=== PATIENT | female | born 1935 | race Caucasian/White ===

== ENCOUNTER 2017-10-14 11:12 | Emergency (ER) | payer MEDICARE ==
[2016-04-10 09:41] VITALS: Ht 177.8 cm; Wt 68.1 kg
[~2017-10-14] VITALS: Ht 177.8 cm; Wt 68.1 kg
[~2017-10-14 11:12] MED LIST: ACE325 PO; ACET-3079 PO; ASPI-715 PO; CAR3.125 PO; CARV25TA78 PO; CEP500 PO; DAR75 PO; DIG125 PO; DIGO125T90 PO; DILT30TA35 PO; DILT360C49 PO; DIPH-740 PO; DONE5TAB29 PO; GLIP2.5T PO; HYDR-4309 PO; IBUP600T22 PO; LISI2.5T60 PO; LOR5/325 PO; METF-420 PO; METXR500 PO; OXYB5TAB86 PO; OXYC-865 PO; POTA20TA94 PO; PRED20TA6 PO; RANI-445 PO; SIMV-42 PO; SITA100T PO; SITA25TA PO; TRAM-420 PO; TRAZ-156 PO; VITA100T4 PO; WAR5 PO; WARF-18 PO
--- NOTE | 2017-10-14 11:14 | ER Report ---
History and Physical Time Seen By MD: 11:13 Hx. of Stated Complaint: Pain hypersensitivity right lower extremity HPI/ROS Patient is on Coumadin for atrial fib states she was making her bed last night and had sudden onset of pain hypersensitivity right lower extremity and states she can have material next to her leg pain is dull and constant and and is not better with treatment since she is trying at home she's tried cremes heat and elevation and rest Remainder of the 14 system rev: Yes Allergies: Coded Allergies: Tetanus Vaccines and Toxoid (Verified Allergy, Intermediate, SWELLING, ) Home Meds Active Scripts Triamcinolone Acetonide 0.1% Oint 15 Gm Tube (TRIAMCINOLONE ACETONIDE 0.1% 15 GM TUBE) 15 Gm Oint...g., 15 GM TP BIDLS for 7 Days, TUBE Prov:TAI CHAN 10/14/17 Warfarin Sodium (WARFARIN SODIUM) 5 Mg Tablet, 7.5 MG PO QDAY, #45 TAB Prov:TREMAYNE MORGAN MD 04/16/16 Reported Medications Oxybutynin Chloride (OXYBUTYNIN CHLORIDE) 5 Mg Tablet, 5 MG PO BID, TAB 10/14/17 Metformin Hcl (METFORMIN HCL) 1,000 Mg Tablet, 1 TAB PO BID, TAB 07/13/17 Carvedilol (CARVEDILOL) 3.125 Mg Tab, 3.125 MG PO BID, TAB 07/13/17 Past Medical/Surgical History History of tonsillectomy, history of dementia, history of atrial fibrillation, history of rheumatic fever as a child, history of high cholesterol, history of hypertension, history of sleep apnea, hysterectomy, hammertoe surgery, diabetes , cervical cancer Hx Smoking: No Smoking Status: Former Smoker Hx Substance Use Disorder: No Hx Alcohol Use: No Family History of: Other Constitutional Vital Sign - Last 24 Hours 10/14/17 10/14/17 11:21 13:13 Temp 97.8 Pulse 64 59 Resp 18 B/P (MAP) 146/65 140/69 (92) Pulse Ox 97 97 O2 Delivery Room Air Room Air Intake and Output 10/14/17 10/14/17 10/15/17 15:00 23:00 07:00 Intake Total 500 ml Balance 500 ml Physical Exam Patient's 82-year-old female alert and oriented no acute distress HEENT has normocephalic/atraumatic tympanic membranes are non-reddened throat is non- reddened neck is supple no JVD heart rate is irregular lungs decreased bilateral bases abdomen is soft bowel sounds 4 quadrants moves all extremities no peripheral edema does have full pulses to all extremities Medical Decision Making Data Points Result Diagram: 10/14/17 1140 10/14/17 1140 Laboratory Hematology Test 10/14/17 11:40 10/14/17 12:37 Red Blood Count 3.99 M/uL (4.17-5.56) Mean Corpuscular Volume 89.4 fL (80.0-96.0) Mean Corpuscular Hemoglobin 30.7 pg (26.0-33.0) Mean Corpuscular Hemoglobin Concent 34.3 g/dL (32.0-36.0) Red Cell Distribution Width 14.0 % (11.5-14.5) Mean Platelet Volume 6.9 fL (7.2-11.1) Neutrophils (%) (Auto) 53.6 % (39.4-72.5) Lymphocytes (%) (Auto) 38.3 % (17.6-49.6) Monocytes (%) (Auto) 6.8 % (4.1-12.4) Eosinophils (%) (Auto) 0.9 % (0.4-6.7) Basophils (%) (Auto) 0.4 % (0.3-1.4) Nucleated RBC Relative Count (auto) 0.0 /100WBC Neutrophils # (Auto) 2.1 K/uL (2.0-7.4) Lymphocytes # (Auto) 1.5 K/uL (1.3-3.6) Monocytes # (Auto) 0.3 K/uL (0.3-1.0) Eosinophils # (Auto) 0.0 K/uL (0.0-0.5) Basophils # (Auto) 0.0 K/uL (0.0-0.1) Nucleated RBC Absolute Count (auto) 0.00 K/uL Sodium Level 134 mmol/L (137-145) Potassium Level 5.0 mmol/L (3.5-5.0) Chloride Level 101 mmol/L (98-107) Carbon Dioxide Level 24 mmol/L (22-31) Blood Urea Nitrogen 17 mg/dl (7-18) Creatinine 1.50 mg/dl (0.52-1.04) Glomerular Filtration Rate Calc 33.3 Random Glucose 102 mg/dl (75-110) Calcium Level 10.0 mg/dl (8.4-10.2) Magnesium Level 1.6 mg/dl (1.7-2.2) Total Bilirubin 0.3 mg/dl (0.2-1.3) Aspartate Amino Transf (AST/SGOT) 16 U/L (0-35) Alanine Aminotransferase (ALT/SGPT) 24 U/L (0-56) Alkaline Phosphatase 53 U/L (0-126) C-Reactive Protein < 0.5 mg/dl (<1.0) Total Protein 6.5 gm/dl (6.3-8.2) Albumin 3.8 g/dl (3.5-5.0) Prothrombin Time 33.5 seconds (12.0-14.4) Prothromb Time International Ratio 3.14 Chemistry Test 10/14/17 11:40 10/14/17 12:37 White Blood Count 3.9 k/uL (4.5-11.0) Red Blood Count 3.99 M/uL (4.17-5.56) Hemoglobin 12.3 g/dL (12.0-16.0) Hematocrit 35.7 % (34.0-47.0) Mean Corpuscular Volume 89.4 fL (80.0-96.0) Mean Corpuscular Hemoglobin 30.7 pg (26.0-33.0) Mean Corpuscular Hemoglobin Concent 34.3 g/dL (32.0-36.0) Red Cell Distribution Width 14.0 % (11.5-14.5) Platelet Count 215 K/uL (150-450) Mean Platelet Volume 6.9 fL (7.2-11.1) Neutrophils (%) (Auto) 53.6 % (39.4-72.5) Lymphocytes (%) (Auto) 38.3 % (17.6-49.6) Monocytes (%) (Auto) 6.8 % (4.1-12.4) Eosinophils (%) (Auto) 0.9 % (0.4-6.7) Basophils (%) (Auto) 0.4 % (0.3-1.4) Nucleated RBC Relative Count (auto) 0.0 /100WBC Neutrophils # (Auto) 2.1 K/uL (2.0-7.4) Lymphocytes # (Auto) 1.5 K/uL (1.3-3.6) Monocytes # (Auto) 0.3 K/uL (0.3-1.0) Eosinophils # (Auto) 0.0 K/uL (0.0-0.5) Basophils # (Auto) 0.0 K/uL (0.0-0.1) Nucleated RBC Absolute Count (auto) 0.00 K/uL Glomerular Filtration Rate Calc 33.3 Calcium Level 10.0 mg/dl (8.4-10.2) Magnesium Level 1.6 mg/dl (1.7-2.2) Total Bilirubin 0.3 mg/dl (0.2-1.3) Aspartate Amino Transf (AST/SGOT) 16 U/L (0-35) Alanine Aminotransferase (ALT/SGPT) 24 U/L (0-56) Alkaline Phosphatase 53 U/L (0-126) C-Reactive Protein < 0.5 mg/dl (<1.0) Total Protein 6.5 gm/dl (6.3-8.2) Albumin 3.8 g/dl (3.5-5.0) Prothrombin Time 33.5 seconds (12.0-14.4) Prothromb Time International Ratio 3.14 Coagulation Test 10/14/17 12:37 Prothrombin Time 33.5 seconds Prothromb Time International Ratio 3.14 EKG/Imaging EKG Interpretation EKG at 1131 sinus bradycardia ventricular rate 57 QTCs 406 ED Course/Re-evaluation Clinical Indication for ER IV: Hydration ED Course Serum creatinine is 1.5 looking at history the history highest was 1.3 we'll give her 500 mL of normal saline for this serum magnesium is 1.6 we'll give her a by mouth 400 mg mag oxide for this ultrasound right lower extremity was read as negative for hypersensitivity noted there is no rash to right lower leg will apply triamcinolone twice a day for a week to follow up with a primary care physician for repeat lab work Re-evaluation Feeling much better after treatment and is willing to go home follow with primary care physician will return for any problems or concerns Decision to Disposition Date: Oct 14, 2017 Decision to Disposition Time: 13:13 Depart Departure Latest Vital Signs Vital Signs Date Time Temp Pulse Resp B/P (MAP) Pulse Ox O2 Delivery O2 Flow Rate FiO2 10/14/17 13:13 59 140/69 (92) 97 Room Air 10/14/17 11:21 97.8 18 Impression: Primary Impression: Elevated serum creatinine Additional Impression: Hypersensitivity Condition: Improved Disposition: HOME OR SELF-CARE Referrals: MIL CARRASCO C[facility]RILL OPERATOR (PCP) 2 Days New Scripts Triamcinolone Acetonide 0.1% Oint 15 Gm Tube (TRIAMCINOLONE ACETONIDE 0.1% 15 GM TUBE) 15 Gm Oint...g. 15 GM TP BIDLS for 7 Days, TUBE Prov: TAI CHAN 10/14/17 Patient Instructions: Leg Pain (ED) Additional Instructions: Her INR report today is 3.1 for follow-up to primary care physician for dosing of your Coumadin take medication as directed follow up closely with her primary care physician Problem Qualifiers TAI CHAN Oct 14, 2017 11:14
[2017-10-14] MEDS ORDERED: OXYB5TAB86 PO (11:25)
--- NOTE | 2017-10-14 11:37 | EKG ---
FACILITY: [facility] PATIENT NAME: JUAN VIEIRA : [id number] MR: [id number] V: [id number] EXAM DATE: ORDERING PHYSICIAN: TAI CHAN TECHNOLOGIST: JUAN ANTONIO Bowman Reason : NAUSEA Blood Pressure : / mmHG Vent. Rate : 057 BPM Atrial Rate : 057 BPM P-R Int : 148 ms QRS Dur : 072 ms QT Int : 418 ms P-R-T Axes : 060 041 060 degrees QTc Int : 406 ms Sinus bradycardia Otherwise normal ECG When compared with ECG of 10-APR-2016 00:47, Sinus rhythm has replaced Atrial flutter Nonspecific T wave abnormality no longer evident in Inferior leads Nonspecific T wave abnormality no longer evident in Anterior leads QT has shortened Confirmed by PRAVEENA WALTERS ([id number]) on 10/14/2017 2:19:17 PM Referred By: SHRADDHA Confirmed By:PRAVEENA WALTERS
[2017-10-14 11:54] LABS: PLATELET COUNT, AUTOMATED 215 K/uL (150-450)
[2017-10-14] MEDS ORDERED: NS(*) 0.9% 500 ML BAG 500 ML IV ONE (12:05)
[2017-10-14] MEDS ORDERED: MAGNESIUM OXIDE 400 MG TAB PO ONE (12:10)
[2017-10-14] MEDS ORDERED: TRIA15OI20 TP (12:22)
[2017-10-14] MEDS ORDERED: TRIAMCINOLONE ACE 0.1% CR 15GM TP ONE (12:25)
--- NOTE | 2017-10-14 12:36 | RADIOLOGY IMAGING REPORT ---
FACILITY: [facility] PATIENT NAME: Yessy Sosa : 1935 MR: [id number] V: [id number] EXAM DATE: ORDERING PHYSICIAN: TAI CHAN TECHNOLOGIST: Location: [facility] [place] Patient: Yessy Sosa : 1935 Visit/Account:[id number] Date of Sevice: 10/14/2017 Right lower extremity venous Doppler duplex ultrasound scan. HISTORY: Right lower leg pain, on Coumadin. COMPARISON: None. A color flow Doppler duplex ultrasound examination with spectral analysis was performed on the lower extremity. The common femoral vein, superficial femoral vein, and popliteal vein are normal. These ve ssels compress and augment normally. The upper portions of the trifurcation veins are unremarkable. P ortions of the deep veins of the calf are obscured. No intraluminal filling defects are identified to suggest acute thrombus in the deep venous system. Note that Doppler ultrasound is somewhat insensiti ve below the knee. A venous reflux study was not performed at this time. IMPRESSION: Negative for acute deep vein thrombosis. Report Dictated By: Virgil Chatman MD at 10/14/2017 12:33 PM Report E-Signed By: Virgil Chatman MD at 10/14/2017 12:34 PM WSN:GEOFFREY
[2017-10-14 12:56] LABS: INR 3.14
[2017-10-14 13:13] VITALS: BP 140/69
== END 2017-10-14 13:10 | disposition home or self-care (01) ==
LOC: ER 11:25
DX: R79.89 Other specified abnormal findings of blood chemistry (principal); R20.8 Other disturbances of skin sensation
CPT/HCPCS: 36415; 83735; 85025; 85610; 86140; 93005; 93971; 96360; 99284; A9270; J7040; 82040; 82247; 82310; 82374; 82435; 82565; 82947; 84075; 84132; 84155; 84295; 84450; 84460; 84520

== ENCOUNTER → 2018-01-21 | Outpatient (CLI) | payer MEDICARE ==
[2016-04-10 09:41] VITALS: BMI 24.1
[~2018-01-21] MED LIST changes: +ACET500T68 PO; +APIX5TAB PO; +CALC-640 PO; +CHOL10005 PO; +CYA1000 PO; +DEN60I SUBQ; +DENOSUMAB 60 MG/1 ML SYR SUBQ ONE; +DICL100G39; +DONE5TAB74 PO; +IBUP-1671 PO; -METF-420 PO; +METF-421 PO; +OXYB10TA16 PO; +TRIA15OI20 TP; -WARF-18 PO; +WARF5TAB23 PO
[2018-01-21 13:48] VITALS: BP 106/64
== END ==
LOC: SPU 07:31
PROVIDERS: ATTEND Nurse Practitioner Family
DX: M81.0 Age-related osteoporosis without current pathological fracture (principal)
CPT/HCPCS: 96372; J0897

== ENCOUNTER 2018-07-08 00:47 | Inpatient (IN) | payer MEDICARE ==
[~2018-07-08] VITALS: Ht 177.8 cm; Wt 75.2 kg
[2018-07-08] VITALS (10 sets, daily range): BP systolic 88–118; BP diastolic 59–90; Ht 177.8 cm; Wt 75.2 kg
[~2018-07-08 00:47] MED LIST changes: -DENOSUMAB 60 MG/1 ML SYR SUBQ ONE; -HYDR-4309 PO; +HYDR-653 PO; -METF-421 PO; +METF-452 PO; -TRAZ-156 PO; +TRAZ50TA34 PO
--- NOTE | 2018-07-08 01:02 | ER Report ---
History and Physical Time Seen By MD: 00:57 Hx. of Stated Complaint: patient states she has been having weakness, and dizziness for the last 5days. patient having shortness of breath and rapid heart rate this evening. HPI/ROS CHIEF COMPLAINT: racing heart rate and some shortness of breath. HISTORY OF PRESENT ILLNESS: This is an 82 year old female. She came to the ER tonight because of ongoing rapid heart rate tonight and a feeling of some mild shortness of breath. This has been going on since this morning. She has paroxysmal atrial fibrillation and is on Eliquis. She also takes Carvedilol 3.125mg three times a day and has not missed doses of her medication. She has no chest pain. No nausea or vomiting. She has had several urinalysis that have revealed urinary tract infections over the last few weeks and has been on several courses of antibiotics, without the ability to get rid of the infection. She has no fevers or chills. She has been a little dizzy today as well. Mild weakness, but is generalized and non-focal. No complaints of pain. Allergies: Coded Allergies: Tetanus Vaccines and Toxoid (Verified Allergy, Intermediate, SWELLING, 10/14/17) Home Meds Reported Medications Loperamide HCl (Imodium A-D) 2 Mg Capsule 07/08/18 Triamcinolone Acetonide 0.1% (TRIAMCINOLONE ACETONIDE 0.1%) 60 Ml Lotion, 60 ML TP BID, BOT 07/08/18 Donepezil Hcl (DONEPEZIL HCL) 5 Mg Tablet, 5 MG PO QHS, TAB 07/08/18 Nitrofurantoin Monohyd/M-Cryst (NITROFURANTOIN MONO-MCR 100 MG) 100 Mg Capsule, 100 MG PO BID for 10 Days, CAPSULE 07/08/18 Diclofenac Sodium 1% Gel (VOLTAREN 1% GEL) 100 Gm Gel..gram. 01/21/18 Cholecalciferol (Vitamin D3) (VITAMIN D3) 1,000 Unit Tablet, 5000 UNIT PO DAILY, TAB 01/21/18 Acetaminophen (TYLENOL EXTRA STRENGTH) 500 Mg Tablet, 500 MG PO PRN PRN for PAIN, TAB 01/21/18 Oxybutynin Chloride (OXYBUTYNIN CHLORIDE ER) 10 Mg Tab.er.24, 10 MG PO QDAY, TAB.SR 01/21/18 Ibuprofen (MOTRIN IB) 200 Mg Tablet, 600 MG PO Q6-8H PRN for PAIN 01/21/18 Sitagliptin Phosphate (JANUVIA) 100 Mg Tablet, 100 MG PO QDAY 01/21/18 Apixaban (ELIQUIS) 5 Mg Tablet, 5 MG PO BID 01/21/18 Carvedilol (CARVEDILOL) 3.125 Mg Tab, 3.125 MG PO BID, TAB 01/21/18 Calcium Citrate/Vitamin D3 (CALCITRATE + VIT D CAPLET) 1 Each Tablet, 1 EACH PO DAILY 01/21/18 Cyanocobalamin (Vitamin B-12) (VITAMIN B-12) 1,000 Mcg Tablet, 1000 MCG PO DAILY 01/21/18 Discontinued Reported Medications Denosumab (PROLIA) 60 Mg/1 Ml Injs, 60 MG SUBQ 01/21/18 Donepezil Hcl (ARICEPT) 5 Mg Tablet, 5 MG PO HS, TAB 01/21/18 Metformin Hcl (METFORMIN HCL) 1,000 Mg Tablet, 1 TAB PO BID, TAB 07/13/17 Past Medical/Surgical History Atrial fibrillation, hypertension, hypercholesterolemia, aly-vqfnfsf-htpyrcxls diabetes, sleep apnea, GERD, stress incontinence, history of rheumatic fever as a child but no known problems, dementia, history of cervical cancer, surgeries include hysterectomy, appendectomy, several foot surgeries, tonsillectomy, bilateral cataract surgeries Reviewed Nurses Notes: Yes Hx Smoking: No Smoking Status: Former Smoker Hx Substance Use Disorder: No Hx Alcohol Use: No Constitutional Vital Sign - Last 24 Hours 07/08/18 07/08/18 07/08/18 07/08/18 00:52 01:00 01:02 01:17 Temp 98.8 Pulse 125 127 134 Resp 20 9 9 B/P (MAP) 120/73 103/76 (85) Pulse Ox 97 98 96 O2 Delivery Room Air 07/08/18 07/08/18 07/08/18 07/08/18 01:30 01:32 01:47 01:52 Pulse 132 134 134 Resp 9 12 24 B/P (MAP) 100/67 (78) Pulse Ox 96 07/08/18 07/08/18 07/08/18 07/08/18 02:14 02:22 02:27 02:30 Pulse 134 134 Resp 21 16 B/P (MAP) 94/63 (73) 93/62 (72) Pulse Ox 98 95 07/08/18 07/08/18 07/08/18 07/08/18 02:42 02:57 03:11 03:12 Pulse 134 133 134 Resp 13 22 20 B/P (MAP) 115/74 (88) Pulse Ox 96 96 98 07/08/18 07/08/18 07/08/18 07/08/18 03:27 03:30 03:42 03:57 Pulse 138 104 99 Resp 16 12 20 B/P (MAP) 110/68 (82) Pulse Ox 96 95 95 07/08/18 07/08/18 07/08/18 07/08/18 04:00 04:05 04:20 04:30 Pulse 97 91 Resp 20 10 B/P (MAP) 94/58 (70) 79/47 (58) Pulse Ox 91 92 07/08/18 07/08/18 07/08/18 07/08/18 04:35 04:50 04:52 04:53 Pulse 88 93 Resp 15 14 B/P (MAP) 88/57 (67) 90/58 (69) 73/53 (60) Pulse Ox 97 96 07/08/18 07/08/18 07/08/18 07/08/18 04:54 05:00 05:05 05:10 Pulse 86 75 Resp 27 13 B/P (MAP) 69/40 (50) 87/63 (71) Pulse Ox 95 94 07/08/18 07/08/18 07/08/18 07/08/18 05:25 05:31 05:36 05:51 Pulse 87 94 90 Resp 7 19 18 B/P (MAP) 83/66 (72) Pulse Ox 96 93 93 07/08/18 07/08/18 07/08/18 07/08/18 06:00 06:06 06:11 06:26 Pulse 77 106 130 Resp 16 25 13 B/P (MAP) 96/48 (64) Pulse Ox 96 96 96 07/08/18 07/08/18 07/08/18 07/08/18 06:30 06:41 06:46 07:00 Pulse 136 133 Resp 10 19 B/P (MAP) 110/66 (81) 86/56 (66) Pulse Ox 97 96 07/08/18 07/08/18 07/08/18 07/08/18 07:01 07:16 07:21 07:30 Pulse 134 134 133 Resp 17 13 15 B/P (MAP) 93/62 (72) Pulse Ox 96 96 95 07/08/18 07/08/18 07/08/18 07/08/18 07:35 07:40 07:45 07:50 Pulse 131 133 131 132 Resp 22 14 18 11 Pulse Ox 95 96 95 97 07/08/18 07/08/18 07/08/18 07/08/18 07:55 08:00 08:05 08:10 Pulse 129 135 116 115 Resp 17 14 22 12 B/P (MAP) 91/54 (66) Pulse Ox 96 97 98 97 07/08/18 07/08/18 07/08/18 07/08/18 08:15 08:20 08:25 08:30 Pulse 99 104 111 99 Resp 16 14 9 14 B/P (MAP) 90/62 (71) Pulse Ox 96 98 97 96 07/08/18 08:35 Pulse 96 Resp 16 Pulse Ox 96 Physical Exam General Appearance: The patient is alert. No acute distress. Non-toxic in appearance. Eyes: Pupils are equal, round. No pallor, injection or icterus. ENT: Mucous membranes are moist. Normal oral mucosa. Posterior oropharynx is normal. Neck: Supple and non tender. Respiratory: Lungs are clear to auscultation. Cardiovascular: Tachycardia with a regular rhythm. No murmurs, gallops or rubs. Normal capillary refill. Trace edema, bilateral lower extremities. Gastrointestinal: Abdomen is soft and non tender. Nondistended. Normal active bowel sounds. Neurological: Alert and oriented x3. No focal neurologic deficits Skin: Warm and dry. Musculoskeletal: Extremities are nontender. Full range of motion. DIFFERENTIAL DIAGNOSIS: After history and physical exam, differential diagnosis was considered for patient with tachycardia with dizziness associated with this and mild shortness of breath. We'll need to look for various causes such as atrial fibrillation although the pulse is regular, infectious disease especially given her recent history of urinary tract infections, other arrhythmias, acute coronary syndromes, PE. Medical Decision Making Data Points Result Diagram: 07/08/18 0100 07/08/18 0100 Laboratory Hematology Test 07/08/18 01:00 07/08/18 03:12 07/08/18 04:42 Red Blood Count 4.74 M/uL (4.17-5.56) Mean Corpuscular Volume 88.2 fL (80.0-96.0) Mean Corpuscular Hemoglobin 29.9 pg (26.0-33.0) Mean Corpuscular Hemoglobin Concent 33.9 g/dL (32.0-36.0) Red Cell Distribution Width 14.3 % (11.5-14.5) Mean Platelet Volume 7.2 fL (7.2-11.1) Neutrophils (%) (Auto) 60.4 % (39.4-72.5) Lymphocytes (%) (Auto) 32.0 % (17.6-49.6) Monocytes (%) (Auto) 6.1 % (4.1-12.4) Eosinophils (%) (Auto) 0.9 % (0.4-6.7) Basophils (%) (Auto) 0.6 % (0.3-1.4) Nucleated RBC Relative Count (auto) 0.1 /100WBC Neutrophils # (Auto) 3.2 K/uL (2.0-7.4) Lymphocytes # (Auto) 1.7 K/uL (1.3-3.6) Monocytes # (Auto) 0.3 K/uL (0.3-1.0) Eosinophils # (Auto) 0.0 K/uL (0.0-0.5) Basophils # (Auto) 0.0 K/uL (0.0-0.1) Nucleated RBC Absolute Count (auto) 0.00 K/uL D-Dimer Quantitative (PE/DVT) < 0.27 ug/ml (0-0.50) Sodium Level 134 mmol/L (137-145) Potassium Level 4.2 mmol/L (3.5-5.0) Chloride Level 98 mmol/L (98-107) Carbon Dioxide Level 24 mmol/L (22-31) Blood Urea Nitrogen 20 mg/dl (7-18) Creatinine 1.30 mg/dl (0.52-1.04) Glomerular Filtration Rate Calc 39.3 Random Glucose 119 mg/dl (75-110) Calcium Level 10.2 mg/dl (8.4-10.2) Total Bilirubin 0.5 mg/dl (0.2-1.3) Aspartate Amino Transf (AST/SGOT) 16 U/L (0-35) Alanine Aminotransferase (ALT/SGPT) 16 U/L (0-56) Alkaline Phosphatase 50 U/L (0-126) Total Protein 7.3 g/dl (6.3-8.2) Albumin 4.2 g/dl (3.5-5.0) Urine WBC Clumps Many /HPF Urine Transitional Epithelial Cells Many /LPF (NONE-FEW) Urine Hyaline Casts Few /LPF (NONE-FEW) Troponin I 0.038 ng/ml Chemistry Test 07/08/18 01:00 07/08/18 03:12 07/08/18 04:42 White Blood Count 5.2 k/uL (4.5-11.0) Red Blood Count 4.74 M/uL (4.17-5.56) Hemoglobin 14.2 g/dL (12.0-16.0) Hematocrit 41.8 % (34.0-47.0) Mean Corpuscular Volume 88.2 fL (80.0-96.0) Mean Corpuscular Hemoglobin 29.9 pg (26.0-33.0) Mean Corpuscular Hemoglobin Concent 33.9 g/dL (32.0-36.0) Red Cell Distribution Width 14.3 % (11.5-14.5) Platelet Count 284 K/uL (150-450) Mean Platelet Volume 7.2 fL (7.2-11.1) Neutrophils (%) (Auto) 60.4 % (39.4-72.5) Lymphocytes (%) (Auto) 32.0 % (17.6-49.6) Monocytes (%) (Auto) 6.1 % (4.1-12.4) Eosinophils (%) (Auto) 0.9 % (0.4-6.7) Basophils (%) (Auto) 0.6 % (0.3-1.4) Nucleated RBC Relative Count (auto) 0.1 /100WBC Neutrophils # (Auto) 3.2 K/uL (2.0-7.4) Lymphocytes # (Auto) 1.7 K/uL (1.3-3.6) Monocytes # (Auto) 0.3 K/uL (0.3-1.0) Eosinophils # (Auto) 0.0 K/uL (0.0-0.5) Basophils # (Auto) 0.0 K/uL (0.0-0.1) Nucleated RBC Absolute Count (auto) 0.00 K/uL D-Dimer Quantitative (PE/DVT) < 0.27 ug/ml (0-0.50) Glomerular Filtration Rate Calc 39.3 Calcium Level 10.2 mg/dl (8.4-10.2) Total Bilirubin 0.5 mg/dl (0.2-1.3) Aspartate Amino Transf (AST/SGOT) 16 U/L (0-35) Alanine Aminotransferase (ALT/SGPT) 16 U/L (0-56) Alkaline Phosphatase 50 U/L (0-126) Total Protein 7.3 g/dl (6.3-8.2) Albumin 4.2 g/dl (3.5-5.0) Urine WBC Clumps Many /HPF Urine Transitional Epithelial Cells Many /LPF (NONE-FEW) Urine Hyaline Casts Few /LPF (NONE-FEW) Troponin I 0.038 ng/ml Coagulation Test 07/08/18 01:00 D-Dimer Quantitative (PE/DVT) < 0.27 ug/ml Urinalysis Test 07/08/18 03:12 Urine WBC Clumps Many /HPF Urine Transitional Epithelial Cells Many /LPF (NONE-FEW) Urine Hyaline Casts Few /LPF (NONE-FEW) EKG/Imaging EKG Interpretation 12 lead EKG: Initial EKG at 00:54 hours Rhythm: Appears to be a sinus tachycardia, appeared to be able to see P waves in leads V1 and in V3. The rate is 125 Toponas: normal QRS: QRS is regular when measured with calipers. Low-voltage QRS ST segments: No ST segment elevation or depression 12 lead EKG: At 03:48 hours Rhythm: Atrial flutter with variable AV block, rate 112 Toponas: normal QRS: Continued low-voltage ST segments: normal Imaging CHEST PA AND LAT HISTORY: Shortness of breath. Atrial fibrillation. Dizzy COMPARISON: 07/13/2017 and studies dating to 01/24/2012. TECHNIQUE: PA and lateral views of the chest. FINDINGS: Pulmonary: There is a calcified granuloma in the left lower lobe, unchanged. There is mild scarring or atelectasis at the right costophrenic angle. There is no pneumothorax or pleural effusion. Cardiomediastinal: Cardiac and mediastinal silhouettes are within normal limits. There is mild to moderate aortic calcification. Bones/soft tissues: No acute osseous abnormality. There is mild degenerative change of the spine. There is mild rightward curvature of the thoracolumbar spine. The visible abdomen is normal. IMPRESSION: 1. Mild scarring or atelectasis at the right costophrenic angle. Report Dictated By: Lisa Aburto at 07/08/2018 2:26 AM ED Course/Re-evaluation Clinical Indication for ER IV: IV Access ED Course Initial attempts at IV access or successful at obtaining blood, but any flushing or attempt at administering medicines or IV fluids causes the veins to blow. P atient continues to be mildly short of breath, discussed other options. Labs appear to be unremarkable other than mild renal insufficiency with an elevated BUN/creatinine ratio. She has normal electrolytes and liver function, normal blood count. Unremarkable d-dimer and troponin at this point as well. Because of this a mild symptoms we will discussed options. She did not appear ill enough to have a central line placed and I don't have any other options are now so we elected to go ahead and use some oral therapy starting with diltiazem 30 mg by mouth dose. She tolerated this well and had slight reduction in her heart rate without any apparent problem with her blood pressure. She is already on Coreg so after about an hour we gave Coreg 3.125 mg oral dose and watched. She had slowing of her heart rate. On the monitor and repeat EKG she seemed to have variation in her rhythm from an atrial flutter with variable AV block 2 atrial fibrillation, getting down into the 70s to 90s heart rate range. Blood pressure started to go down as well. Blood pressures ranged from the 115 systolic range down to the 80s systolic range. While resting she is asymptomatic, but with change in position she gets dizzy and orthostatic vital signs show orthostatic hypotension. She was finally able to give us a urinalysis as well and shows to have question of contamination versus urinary tract infection as well. Discussed the case with Dr. Potts, and we felt like the main problem we are dealing with is dehydration. We have the IV in place finally and giving slow IV normal saline to be careful with the IV. Has had almost 1 liter in and starting to see improvement in blood pressure and slight decrease in pulse. We are going to continue hydration over the next few hours and see if this improves, but may need to admit for further hydration and monitoring and consideration of other medications. Decision to Disposition Date: Jul 08, 2018 Decision to Disposition Time: 09:00 Turned Over The care of the patient was turned over to Dr. Jett. Alejo Sheehan M.D. I authorize my typed signature that I authenticated this report. Depart Departure Latest Vital Signs Vital Signs Date Time Temp Pulse Resp B/P (MAP) Pulse Ox O2 Delivery O2 Flow Rate FiO2 07/08/18 08:35 96 16 96 07/08/18 08:30 90/62 (71) 07/08/18 00:52 98.8 Room Air Impression: Primary Impression: Atrial fibrillation with RVR Additional Impression: Atrial flutter Condition: Condition Unchanged Disposition: Admitted from ER Referrals: MIL CARRASCO (PCP) Problem Qualifiers Additional Impression: Atrial flutter Atrial flutter type: unspecified Qualified Codes: I48.92 - Unspecified atrial flutter ALEJO SHEEHAN MD Jul 08, 2018 01:02
[2018-07-08] MEDS ORDERED: NS(*) 0.9% 1000 ML BAG 1,000 ML IV ONE ×2 (01:05→05:35)
[2018-07-08] MEDS ORDERED: DILTIAZEM 5 MG/ML 5ML IVPUSH IVP ONE (01:05)
[2018-07-08] MEDS ORDERED: NITR-57 PO (01:07)
[2018-07-08 01:12] LABS: PLATELET COUNT, AUTOMATED 284 K/uL (150-450)
--- NOTE | 2018-07-08 01:58 | EKG ---
FACILITY: [facility] PATIENT NAME: JUAN VIEIRA : [id number] MR: [id number] V: [id number] EXAM DATE: ORDERING PHYSICIAN: VIKI AVILA TECHNOLOGIST: PITO Test Reason : CARDIAC Blood Pressure : / mmHG Vent. Rate : 125 BPM Atrial Rate : 125 BPM P-R Int : 000 ms QRS Dur : 066 ms QT Int : 304 ms P-R-T Axes : 000 018 054 degrees QTc Int : 438 ms Accelerated Junctional rhythm Low voltage QRS Septal infarct , age undetermined Abnormal ECG When compared with ECG of 14-OCT-2017 11:31, Junctional rhythm has replaced Sinus rhythm Vent. rate has increased BY 68 BPM Septal infarct is now present T wave amplitude has decreased in Inferior leads Nonspecific T wave abnormality now evident in Anterior leads Confirmed by JOSHUA GODOY ([id number]) on 07/08/2018 6:20:18 AM Referred By: Confirmed By:JOSHUA GODOY
[2018-07-08] MEDS ORDERED: DILTIAZEM IR 30 MG TAB PO ONE (02:05)
[2018-07-08] MEDS ORDERED: CARVEDILOL 3.125 MG TAB PO ONE (02:15)
--- NOTE | 2018-07-08 02:33 | RADIOLOGY IMAGING REPORT ---
FACILITY: [facility] PATIENT NAME: Yessy Sosa : 1935 MR: [id number] V: [id number] EXAM DATE: ORDERING PHYSICIAN: VIKI AVILA TECHNOLOGIST: Location: [facility] [place] Patient: Yessy Sosa : 1935 Visit/Account:[id number] Date of Sevice: 07/08/2018 CHEST PA AND LAT HISTORY: Shortness of breath. Atrial fibrillation. Dizzy COMPARISON: 07/13/2017 and studies dating to 01/24/2012. TECHNIQUE: PA and lateral views of the chest. FINDINGS: Pulmonary: There is a calcified granuloma in the left lower lobe, unchanged. There is mild scarring o r atelectasis at the right costophrenic angle. There is no pneumothorax or pleural effusion. Cardiomediastinal: Cardiac and mediastinal silhouettes are within normal limits. There is mild to mod erate aortic calcification. Bones/soft tissues: No acute osseous abnormality. There is mild degenerative change of the spine. The re is mild rightward curvature of the thoracolumbar spine. The visible abdomen is normal. IMPRESSION: 1. Mild scarring or atelectasis at the right costophrenic angle. Report Dictated By: Lisa Aburto at 07/08/2018 2:26 AM Report E-Signed By: Lisa Aburto at 07/08/2018 2:28 AM WSN:[id number]
[2018-07-08] MEDS ORDERED: ACETAMINOPHEN 500 MG TAB PO ONE (03:15)
[2018-07-08] MEDS ORDERED: TRIA60LO3 TP (11:14)
[2018-07-08] MEDS ORDERED: DONE5TAB29 PO (11:14)
[2018-07-08] MEDS ORDERED: LOPE2CAP15 (11:14)
[2018-07-08] MEDS ORDERED: DIGOXIN 0.5 MG/2 ML AMP IVP ONE ×3 (11:30→21:40)
[2018-07-08] MEDS ORDERED: APIXABAN 2.5 MG TABLET PO ONE (11:48)
--- NOTE | 2018-07-08 11:59 | History & Physical ---
History of Present Illness History of Present Illness 82yo female with atrial fibrillation who came to the ER for weakness and dizziness for a week. She was in her normal state of health until about a week ago. She started noting intermittent SOB that was not associated with exertion. She also would get dizzy with standing up. Both symptoms have progressively w orsened. Last night, she was so weak that she couldn't prepare a meal. She checked her pulse oximetry and noted that her heart rate was 110-118 bpm, so she came to the ER. She denies cp/orthopnea/PND/chills/fevers/dyspnea. In the ER, she was found to be in atrial fibrillation with RVR. She was given a dose of oral diltiazem IR 30mg and then carvedilol 3.125mg. The patient then developed some low BP's and was symptomatic so was bolused IVF. She is feeling better, but still getting dizzy with even sitting up. History Problems: (1) CKD (chronic kidney disease) stage 3, GFR 30-59 ml/min Status: Chronic (2) Atrial flutter Status: Chronic (3) GERD (gastroesophageal reflux disease) Status: Chronic (4) Stress incontinence Status: Chronic (5) T2DM (type 2 diabetes mellitus) Status: Chronic (6) Chronic systolic (congestive) heart failure Status: Resolved (7) Moderate to severe pulmonary hypertension Status: Chronic Home Meds Reported Medications Nitrofurantoin Monohyd/M-Cryst (NITROFURANTOIN MONO-MCR 100 MG) 100 Mg Capsule, 100 MG PO BID, CAPSULE 07/08/18 Diclofenac Sodium 1% Gel (VOLTAREN 1% GEL) 100 Gm Gel..gram. 01/21/18 Cholecalciferol (Vitamin D3) (VITAMIN D3) 1,000 Unit Tablet, 5000 UNIT PO DAILY, TAB 01/21/18 Acetaminophen (TYLENOL EXTRA STRENGTH) 500 Mg Tablet, 500 MG PO PRN PRN for PAIN, TAB 01/21/18 Oxybutynin Chloride (OXYBUTYNIN CHLORIDE ER) 10 Mg Tab.er.24, 10 MG PO QDAY, TAB.SR 01/21/18 Ibuprofen (MOTRIN IB) 200 Mg Tablet, 600 MG PO Q6-8H PRN for PAIN 01/21/18 Sitagliptin Phosphate (JANUVIA) 100 Mg Tablet, 100 MG PO QDAY 01/21/18 Apixaban (ELIQUIS) 5 Mg Tablet, 5 MG PO BID 01/21/18 Carvedilol (CARVEDILOL) 3.125 Mg Tab, 3.125 MG PO BID, TAB 01/21/18 Calcium Citrate/Vitamin D3 (CALCITRATE + VIT D CAPLET) 1 Each Tablet, 1 EACH PO DAILY 01/21/18 Cyanocobalamin (Vitamin B-12) (VITAMIN B-12) 1,000 Mcg Tablet, 1000 MCG PO DAILY 01/21/18 Discontinued Reported Medications Denosumab (PROLIA) 60 Mg/1 Ml Injs, 60 MG SUBQ 01/21/18 Donepezil Hcl (ARICEPT) 5 Mg Tablet, 5 MG PO HS, TAB 01/21/18 Metformin Hcl (METFORMIN HCL) 1,000 Mg Tablet, 1 TAB PO BID, TAB 07/13/17 Allergies: Coded Allergies: Tetanus Vaccines and Toxoid (Verified Allergy, Intermediate, SWELLING, 10/14/17) Other Social/Family Hx She smoked 1/3 ppd for 10 years and quit 40 years ago. Rare alcohol use. Hx Smoking: No Smoking Status: Former Smoker Hx Alcohol Use: No Hx Substance Use Disorder: No Review of Systems All Systems Reviewed/Normal: Yes, Except as Noted Exam Vital Signs Vital Signs Date Time Temp Pulse Resp B/P (MAP) Pulse Ox O2 Delivery O2 Flow Rate FiO2 07/08/18 10:21 98.6 139 12 118/74 (89) 94 Room Air General Appearance: Alert, Awake, No Acute Distress (Breathing comfortably) Neuro: No Gross deficits ENT: Moist Mucous Membranes, Posterior Pharynx Clear Cardiovascular: No JVD, Other (Irreg, irreg. No m/r/g) Respiratory: Clear to Auscultation GI: Abd Soft and Non-Tender Extremities: No Edema Integumentary: No Jaundice, No Cyanosis Medical Decision Making Data Points Result Diagram: 07/08/18 0100 07/08/18 0100 Item Value Date Time Urine Leukocyte Esterase Large H 07/08/18 0312 Urine RBC 14 /HPF 07/08/18 0312 Urine WBC 330 /HPF 07/08/18 0312 Urine WBC Clumps Many /HPF 07/08/18 0312 Urine Squamous Epithelial Cells Many /LPF H 07/08/18 0312 Urine Transitional Epithelial Cells Many /LPF H 07/08/18 0312 Urine Bacteria Many /HPF H 07/08/18 0312 Neutrophils (%) (Auto) 60.4 % 07/08/18 010 Lymphocytes (%) (Auto) 32.0 % 07/08/18 010 Monocytes (%) (Auto) 6.1 % 07/08/18 010 Eosinophils (%) (Auto) 0.9 % 07/08/18 010 Basophils (%) (Auto) 0.6 % D-Dimer Quantitative (PE/DVT) < 0.27 ug/ml 07/08/18 010 Troponin I 0.038 ng/ml 07/08/18 0442 Troponin I 0.030 ng/ml Total Bilirubin 0.5 mg/dl Aspartate Amino Transf (AST/SGOT) 16 U/L 07/08/18 010 Alanine Aminotransferase (ALT/SGPT) 16 U/L 07/08/18 010 Alkaline Phosphatase 50 U/L 07/08/18 010 Creatinine 1.10 mg/dl H 07/13/17 1420 Creatinine 1.50 mg/dl H 10/14/17 1140 EKG / Imaging EKG Interpretation The first ECG appeared to be a sinus rhythm with 1st degree AV block at a rate of 125bpm. However, subsequent ECG's, that have to be uploaded, look more like an atrial flutter with variable conduction and RVR. Imaging CXR - 1. Mild scarring or atelectasis at the right costophrenic angle. Assessment and Plan Problems: (1) Atrial fibrillation with RVR Status: Acute Assessment & Plan: She presented with 5-7 days of progressive dizziness with standing and weakness. She was found to be in atrial fib/flutter with rates in the 110-130's. Per her report, she is usually in a sinus rhythm. She was given a dose of diltiazem IR 30mg and carvedilol 3.125mg in the ER with complications of symptomatic hypotension and not much improvement in her HR. She is feeling better after a fluid bolus. Her heart rate still ranges from 100's to 130's. BP is better, but gets dizzy with standing. Will load with Digoxin, continue carvedilol, hydrate, check an echo, check a TSH and watch on telemetry. Ashley nue chronic Eliquis, but at age and renal dosing (which she should likely be on as an outpatient). (2) UTI (urinary tract infection) Status: Acute Assessment & Plan: She has many WBC on the UA, but also SCE. She is asymptomatic, afebrile and has a normal WBC. However, she reports many asymptomatic UTI's in the past. Will do a straight cath and likely start Rocephin. (3) Chronic systolic (congestive) heart failure Status: Resolved Assessment & Plan: She had an EF of 48%, with Moderate to severe KENYATTA, moderate AR, severe TR and severe pulmonary hypertension on 04/10/16 echo. However, 05/15/16 echo showed an EF of 53%. A nuclear stress test on 06/04/16 showed no rmal perfusion, and normal LV size and function (an EF of 85%). No symptoms c/w with CHF. Will get an echo, as above. (4) T2DM (type 2 diabetes mellitus) Status: Chronic Assessment & Plan: Continue chronic Januvia, but at renal dosing of 50mg a day (which she should likely be on as an outpatient). Chronic metformin will be held for now. The patient with be on AC and HS glucose with SSI level 2 to cover. (5) Stress incontinence Status: Chronic Assessment & Plan: Continue chronic oxybutynin. (6) Moderate to severe pulmonary hypertension Status: Chronic Assessment & Plan: See above. (7) CKD (chronic kidney disease) stage 3, GFR 30-59 ml/min Status: Chronic Assessment & Plan: Baseline creatinine is 1.1-1.5. Will follow. Copies to: ELISABETH WILLAMS MD; BIANCA CRAWFORD MD; MIL CARRASCO ; Venous Thromboembolism Antithrombotics Is Pt On Any Antithrombotics?: Yes Exam Sepsis Risk: No Definite Risk TREMAYNE MORGAN MD Jul 08, 2018 11:59
[2018-07-08] MEDS: INSULIN HUM LISPRO 100 UN/ML 3 ML VIAL SUBQ PRN ×2 (12:01→20:48)
[2018-07-08] MEDS: APIXABAN 2.5 MG TABLET PO SCH ×2 (12:04→20:47)
[2018-07-08] MEDS: NS(*) 0.9% 1000 ML BAG 1,000 ML IV PRN (13:05)
[2018-07-08] MEDS: cefTRIAXone 1 GM VIAL IVP SCH (14:28)
[2018-07-08] MEDS: CARVEDILOL 3.125 MG TAB PO SCH (20:01)
[2018-07-08] MEDS: OXYBUTYNIN CHL XL 5 MG TABCR PO SCH (20:47)
[2018-07-09] VITALS (12 sets, daily range): BP systolic 91–119; BP diastolic 55–75
[2018-07-09 05:56] LABS: PLATELET COUNT, AUTOMATED 235 K/uL (150-450)
[2018-07-09] MEDS: APIXABAN 2.5 MG TABLET PO SCH ×2 (09:49→20:54)
[2018-07-09] MEDS: CARVEDILOL 3.125 MG TAB PO SCH (09:50)
[2018-07-09] MEDS ORDERED: CARVEDILOL 3.125 MG TAB PO ONE (10:30)
--- NOTE | 2018-07-09 10:58 | Hospitalist Progress Note ---
Subjective Progress Notes Subjective 82F admitted for Aflutter/afib with RVR. ROWAN overnight, continues to be symptomatic with ambulation and heart rate increases. 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 Patient Complains of: Neurological: Weakness, Dizziness; No: Syncope Cardiovascular: Palpitations; No: Chest Pain Respiratory: No: Cough Physical Exam Vital Signs Date Time Temp Pulse Resp B/P (MAP) Pulse Ox O2 Delivery O2 Flow Rate FiO2 07/09/18 10:32 97.7 125 16 100/68 (79) 95 Room Air 07/09/18 05:59 1.5 Intake and Output 07/09/18 07:00 Intake Total 2792 ml Output Total 500 ml Balance 2292 ml Intake Oral 1792 ml IV Total 1000 ml Output Urine Total 500 ml # Voids 7 General Appearance: Alert, Awake, No Acute Distress Neuro: No Gross deficits Eyes: PERRLA ENT: Normal Neck: No Masses Cardiovascular: Other (irregularly irregular, thacycardic) Respiratory: No Respiratory Distress Chest: No Masses GI: Soft and Non-Tender Musculoskeletal: No Weakness/Pain Extremities: Soft and Non Tender, Warm, Pulses, Perfused; No Edema Integumentary: Skin Intact without Lesion / Mass Psych: Alert & Oriented X3 Result Diagram: 07/09/18 0542 07/09/18 0542 Assessment and Plan Problems: (1) Atrial fibrillation with RVR Status: Acute Assessment & Plan: She presented with 5-7 days of progressive dizziness with standing and weakness, found to be in atrial fib/flutter with rates in the 110- 130's. Per her report, she is usually in a sinus rhythm. She was given a dose of diltiazem IR 30mg and carvedilol 3.125mg in the ER with complications of symptomatic hypotension and not much improvement in her HR. She was loaded with digoxin with no significant improvement in BP. Increased carvedilol to 6.25 but BP is limiting. Consider amiodarone. (2) Asymptomatic bacteriuria Assessment & Plan: She has many WBC on the UA from ER, but also SCE. She is asymptomatic, afebrile and has a normal WBC. Repeat UA negative. (3) Chronic systolic (congestive) heart failure Status: Resolved Assessment & Plan: She had an EF of 48%, with Moderate to severe KENYATTA, moderate AR, severe TR and severe pulmonary hypertension on 04/10/16 echo. However, 05/15/16 echo showed an EF of 53%. A nuclear stress test on 06/04/16 showed normal perfusion, and normal LV size and function (an EF of 85%). No symptoms c/w with CHF. Repeat ECHO 50-55% EF, severely dilated L atrium, moderately dilated R atrium. (4) T2DM (type 2 diabetes mellitus) Status: Chronic Assessment & Plan: Continue chronic Januvia, but at renal dosing of 50mg a day (which she should likely be on as an outpatient). Chronic metformin will be held for now. The patient with be on AC and HS glucose with SSI level 2 to cover. (5) Stress incontinence Status: Chronic Assessment & Plan: Continue chronic oxybutynin. (6) Moderate to severe pulmonary hypertension Status: Chronic Assessment & Plan: See above. (7) CKD (chronic kidney disease) stage 3, GFR 30-59 ml/min Status: Chronic Assessment & Plan: Baseline creatinine is 1.1-1.5. Will follow. Exam Sepsis Risk: No Definite Risk ANDERSON ALIN CONRAD DO Jul 09, 2018 10:58
[2018-07-09] MEDS: INSULIN HUM LISPRO 100 UN/ML 3 ML VIAL SUBQ PRN ×2 (11:38→20:55)
[2018-07-09] MEDS: cefTRIAXone 1 GM VIAL IVP SCH (14:17)
[2018-07-09] MEDS ORDERED: INFLUENZA VIRUS VAC 0.5ML SYR IM ONLY ONE (16:00)
[2018-07-09] MEDS ORDERED: DILTIAZEM(*) 5 MG/ML 5ML IVP 125 MG in NS(*) 0.9% 100 ML BAG 100 ML IV SCH (17:30)
[2018-07-09] MEDS: CARVEDILOL 6.25 MG TAB PO SCH (20:54)
[2018-07-09] MEDS: OXYBUTYNIN CHL XL 5 MG TABCR PO SCH (20:54)
[2018-07-09] MEDS: NS(*) 0.9% 1000 ML BAG 1,000 ML IV PRN (22:12)
[2018-07-10] VITALS (13 sets, daily range): BP systolic 82–122; BP diastolic 36–87
[2018-07-10] MEDS: NS(*) 0.9% 1000 ML BAG 1,000 ML IV PRN ×2 (04:42→14:41)
[2018-07-10] MEDS: APIXABAN 2.5 MG TABLET PO SCH ×2 (09:37→20:57)
[2018-07-10] MEDS: CARVEDILOL 6.25 MG TAB PO SCH ×2 (09:37→20:57)
[2018-07-10] MEDS ORDERED: APIX2.5T PO (09:41)
[2018-07-10] MEDS ORDERED: CAR6.25 PO (09:41)
--- NOTE | 2018-07-10 09:46 | Hospitalist Depart ---
Discharge Summary Reason for Hosp/Final Diag: (1) Atrial fibrillation with RVR Status: Acute Hospital Course & Plan: She presented with 5-7 days of progressive dizziness with standing and weakness, and was found to be in atrial fib/flutter with rates in the 110-130's. Per her report, she is usually in a sinus rhythm. She was given a dose of diltiazem IR 30mg and carvedilol 3.125mg in the ER with complications of symptomatic hypotension and not much improvement in her HR. We did try a digoxin load with no significant improvement. Ultimately she improved after increasing her carvedilol dose slightly. Her blood pressure remains borderline low, which will limit the ability to further titrate her medications. Her Eliquis dose has been decreased secondary to renal function. (2) Asymptomatic bacteriuria Hospital Course & Plan: She had many leukocytes on her initial sample, but it was contaminated. A repeat cath urine was clear, but is growing a gram positive cocci. She is asymptomatic and is without fever or an elevated WBC. She does not require antibiotics at this time. (3) Chronic systolic (congestive) heart failure Status: Resolved Hospital Course & Plan: An echocardiogram showed a normal ejection fraction and a severely dilated left atrium. (4) T2DM (type 2 diabetes mellitus) Status: Chronic Hospital Course & Plan: She is on chronic treatment with Januvia and metformin. (5) Stress incontinence Status: Chronic Hospital Course & Plan: She is on chronic treatment with oxybutynin. (6) Moderate to severe pulmonary hypertension Status: Chronic Hospital Course & Plan: Her right ventricular pressure was noted to be 45- 50mmHg. (7) CKD (chronic kidney disease) stage 3, GFR 30-59 ml/min Status: Chronic Departure Latest Vital Signs Vital Signs 07/10/18 07/10/18 07/10/18 07/10/18 07/10/18 05:20 07:37 07:39 07:51 09:35 Temp 98.1 Pulse 81 Resp 16 B/P (MAP) 113/56 (75) Pulse Ox 93 O2 Delivery Room Air O2 Flow Rate 1.5 Weight (Pounds): 162 Weight (Ounces): 2.0 Result Diagram: 07/09/1842 07/09/18541 Condition: Improved Discharge: Home, Self Care Discharge Instructions Home Meds Active Scripts Apixaban (ELIQUIS) 2.5 Mg Tablet, 2.5 MG PO BID, #60 TAB Prov:JOSHUA GODOY DO 07/10/18 Carvedilol (CARVEDILOL) 6.25 Mg Tab, 6.25 MG PO BID, #60 TAB Prov:JOSHUA GODOY DO 07/10/18 Reported Medications Loperamide HCl (Imodium A-D) 2 Mg Capsule 07/08/18 Donepezil Hcl (DONEPEZIL HCL) 5 Mg Tablet, 5 MG PO QHS, TAB 07/08/18 Diclofenac Sodium 1% Gel (VOLTAREN 1% GEL) 100 Gm Gel..gram. 01/21/18 Cholecalciferol (Vitamin D3) (VITAMIN D3) 1,000 Unit Tablet, 5000 UNIT PO DAILY, TAB 01/21/18 Acetaminophen (TYLENOL EXTRA STRENGTH) 500 Mg Tablet, 500 MG PO PRN PRN for PAIN, TAB 01/21/18 Oxybutynin Chloride (OXYBUTYNIN CHLORIDE ER) 10 Mg Tab.er.24, 10 MG PO QDAY, TAB.SR 01/21/18 Sitagliptin Phosphate (JANUVIA) 100 Mg Tablet, 100 MG PO QDAY 01/21/18 Calcium Citrate/Vitamin D3 (CALCITRATE + VIT D CAPLET) 1 Each Tablet, 1 EACH PO DAILY 01/21/18 Cyanocobalamin (Vitamin B-12) (VITAMIN B-12) 1,000 Mcg Tablet, 1000 MCG PO DAILY 01/21/18 Discontinued Reported Medications Triamcinolone Acetonide 0.1% (TRIAMCINOLONE ACETONIDE 0.1%) 60 Ml Lotion, 60 ML TP BID, BOT 07/08/18 Nitrofurantoin Monohyd/M-Cryst (NITROFURANTOIN MONO-MCR 100 MG) 100 Mg Capsule, 100 MG PO BID for 10 Days, CAPSULE 07/08/18 Ibuprofen (MOTRIN IB) 200 Mg Tablet, 600 MG PO Q6-8H PRN for PAIN 01/21/18 Apixaban (ELIQUIS) 5 Mg Tablet, 5 MG PO BID 01/21/18 Carvedilol (CARVEDILOL) 3.125 Mg Tab, 3.125 MG PO BID, TAB 01/21/18 Denosumab (PROLIA) 60 Mg/1 Ml Injs, 60 MG SUBQ 01/21/18 Donepezil Hcl (ARICEPT) 5 Mg Tablet, 5 MG PO HS, TAB 01/21/18 Metformin Hcl (METFORMIN HCL) 1,000 Mg Tablet, 1 TAB PO BID, TAB 07/13/17 Diet: Diabetic Activity: As Tolerated Copies to: MIL CARRASCO MATERIAL INSPECTOR ; Venous Thromboembolism Antithrombotics Is Pt On Any Antithrombotics?: Yes JOSHUA GODOY DO Jul 10, 2018 09:46
[2018-07-10] MEDS: INSULIN HUM LISPRO 100 UN/ML 3 ML VIAL SUBQ PRN ×2 (11:53→20:58)
[2018-07-10] MEDS: OXYBUTYNIN CHL XL 5 MG TABCR PO SCH (20:57)
[2018-07-11] VITALS (27 sets, daily range): BP systolic 89–144; BP diastolic 46–107
--- NOTE | 2018-07-11 06:15 | EKG ---
FACILITY: [facility] PATIENT NAME: JUAN VIEIRA : [id number] MR: [id number] V: [id number] EXAM DATE: ORDERING PHYSICIAN: JOSHUA GODOY TECHNOLOGIST: EDGAR Test Reason : RVR Blood Pressure : / mmHG Vent. Rate : 135 BPM Atrial Rate : 300 BPM P-R Int : 000 ms QRS Dur : 072 ms QT Int : 292 ms P-R-T Axes : 000 037 040 degrees QTc Int : 438 ms Atrial fibrillation with premature ventricular or aberrantly conducted complexes Low voltage QRS Nonspecific ST abnormality , probably digitalis effect Abnormal ECG When compared with ECG of 08-JUL-2018 00:54, Atrial fibrillation has replaced Junctional rhythm Confirmed by JOSHUA GODOY ([id number]) on 07/11/2018 6:45:10 AM Referred By: JAYNE Confirmed By:JOSHUA GODOY
[2018-07-11] MEDS: APIXABAN 2.5 MG TABLET PO SCH ×2 (09:14→21:30)
[2018-07-11] MEDS: CARVEDILOL 6.25 MG TAB PO SCH ×2 (09:14→21:30)
[2018-07-11] MEDS ORDERED: DILTIAZEM(*) 5 MG/ML 5ML IVP 125 MG in NS(*) 0.9% 100 ML BAG 100 ML IV SCH (09:15)
[2018-07-11 09:19] LABS: PLATELET COUNT, AUTOMATED 236 K/uL (150-450)
--- NOTE | 2018-07-11 10:00 | Hospitalist Progress Note ---
Subjective Progress Notes Subjective The patient developed recurrent tachycardia this am. She did have an episode of brief chest pain but this has resolved. Physical Exam Vital Signs Date Time Temp Pulse Resp B/P (MAP) Pulse Ox O2 Delivery O2 Flow Rate FiO2 07/11/18 07:40 93 Room Air 07/11/18 07:29 98.3 120 16 107/69 (82) 07/10/18 05:20 1.5 Intake and Output 07/11/18 07:00 Intake Total 1590 ml Balance 1590 ml Intake Oral 600 ml IV Total 990 ml # Voids 8 General Appearance: Alert, Awake, No Acute Distress Neuro: No Gross deficits Cardiovascular: Other (Tachy, regular.) Respiratory: Clear to Auscultation GI: Soft and Non-Tender Extremities: Warm Psych: Appropriate Mood & Affect Result Diagram: 07/11/1890207/11/18902 Assessment and Plan Problems: (1) Atrial fibrillation with RVR Status: Acute Assessment & Plan: She presented with 5-7 days of progressive dizziness with standing and weakness, and was found to be in atrial fib/flutter with rates in the 110-130's. Per her report, she is usually in a sinus rhythm. She was given a dose of diltiazem IR 30mg and carvedilol 3.125mg in the ER with complications of symptomatic hypotension and not much improvement in her HR. We did try a digoxin load with no significant improvement. Her heart rate is now back in the 140s to 150s. Will start a low dose diltiazem gtt without a bolus and monitor. Will repeat labs with a troponin this am as well. (2) Asymptomatic bacteriuria Assessment & Plan: She had many leukocytes on her initial sample, but it was contaminated. A repeat cath urine was clear, but is growing a gram positive cocci. She is asymptomatic and is without fever or an elevated WBC. She does not require antibiotics at this time. (3) Chronic systolic (congestive) heart failure Status: Resolved Assessment & Plan: An echocardiogram showed a normal ejection fraction and a severely dilated left atrium. (4) T2DM (type 2 diabetes mellitus) Status: Chronic Assessment & Plan: She is on chronic treatment with Januvia and metformin. (5) Stress incontinence Status: Chronic Assessment & Plan: She is on chronic treatment with oxybutynin. (6) Moderate to severe pulmonary hypertension Status: Chronic Assessment & Plan: Her right ventricular pressure was noted to be 45-50mmHg. (7) CKD (chronic kidney disease) stage 3, GFR 30-59 ml/min Status: Chronic Time Spent on Plan of Care: < 30 min Exam Sepsis Risk: No Definite Risk PRAVEENA NEELY MD Jul 11, 2018 10:00
[2018-07-11] MEDS: NS(*) 0.9% 1000 ML BAG 1,000 ML IV PRN ×2 (10:42→21:37)
[2018-07-11] MEDS: INSULIN HUM LISPRO 100 UN/ML 3 ML VIAL SUBQ PRN ×3 (12:20→21:38)
[2018-07-11] MEDS: OXYBUTYNIN CHL XL 5 MG TABCR PO SCH (21:30)
[2018-07-12] VITALS (50 sets, daily range): BP systolic 88–137; BP diastolic 42–111
[2018-07-12 06:45] LABS: PLATELET COUNT, AUTOMATED 232 K/uL (150-450)
[2018-07-12] MEDS: APIXABAN 2.5 MG TABLET PO SCH ×2 (09:01→20:53)
[2018-07-12] MEDS: CARVEDILOL 6.25 MG TAB PO SCH ×2 (09:01→20:53)
[2018-07-12] MEDS ORDERED: AMIODARONE(*) 150 MG/3 ML INJ 150 MG in DEXTROSE 5%(*) 100 ML BAG 100 ML IVPB ONE (12:00)
[2018-07-12] MEDS ORDERED: AMIODARONE HCL 450 MG/9 ML 360 MG in D5W VISIV(*) 250 ML 242.8 ML IVPB ONE (12:15)
[2018-07-12] MEDS: INSULIN HUM LISPRO 100 UN/ML 3 ML VIAL SUBQ PRN ×3 (12:19→20:53)
--- NOTE | 2018-07-12 13:02 | Hospitalist Progress Note ---
Subjective Progress Notes Subjective 82F admitted for afib with RVR. Remains symptomatic on standing, BP will not tolerate adding CCB. Transfer to ICU and begin amiodarone. Patient Complains of: Neurological: Weakness, Dizziness Cardiovascular: Palpitations Physical Exam Vital Signs Date Time Temp Pulse Resp B/P (MAP) Pulse Ox O2 Delivery O2 Flow Rate FiO2 07/12/18 12:43 95 07/12/18 12:30 93 21 114/68 (83) Room Air 07/12/18 11:29 98.4 07/10/18 05:20 1.5 Intake and Output 07/12/18 06:59 Intake Total 3800 ml Balance 3800 ml Intake Oral 1800 ml IV Total 2000 ml # Voids 9 General Appearance: Alert, Awake, No Acute Distress Neuro: No Gross deficits Eyes: PERRLA ENT: Normal Cardiovascular: Other (irregularly irregular, tachy on standing) Respiratory: No Respiratory Distress GI: Soft and Non-Tender Extremities: Soft and Non Tender, Warm, Pulses, Perfused; No Edema Integumentary: Skin Intact without Lesion / Mass Psych: Alert & Oriented X3 Result Diagram: 07/12/1853207/12/18532 Assessment and Plan Problems: (1) Atrial fibrillation with RVR Status: Acute Assessment & Plan: She presented with 5-7 days of progressive dizziness with standing and weakness, and was found to be in atrial fib/flutter with rates in the 110-130's. Per her report, she is usually in a sinus rhythm. She was given a dose of diltiazem IR 30mg and carvedilol 3.125mg in the ER with complications of symptomatic hypotension and not much improvement in her HR. We did try a di goxin load with no significant improvement. Her heart rate is now back in the 140s to 150s. Did not tolerate addition of diltiazem, she is on 6.25 Coreg. Transferred to ICU and amiodarone drip started. (2) Asymptomatic bacteriuria Assessment & Plan: She had many leukocytes on her initial sample, but it was contaminated. A repeat cath urine was clear, but is growing a gram positive cocci. She is asymptomatic and is without fever or an elevated WBC. She does not require antibiotics at this time. (3) Chronic systolic (congestive) heart failure Status: Resolved Assessment & Plan: An echocardiogram showed a normal ejection fraction and a severely dilated left atrium. (4) T2DM (type 2 diabetes mellitus) Status: Chronic Assessment & Plan: She is on chronic treatment with Januvia and metformin. (5) Stress incontinence Status: Chronic Assessment & Plan: She is on chronic treatment with oxybutynin. (6) Moderate to severe pulmonary hypertension Status: Chronic Assessment & Plan: Her right ventricular pressure was noted to be 45-50mmHg. (7) CKD (chronic kidney disease) stage 3, GFR 30-59 ml/min Status: Chronic Exam Sepsis Risk: No Definite Risk ALIN AJ DO Jul 12, 2018 13:02
[2018-07-12] MEDS ORDERED: D5W VISIV IVPB ONE (18:00)
[2018-07-12] MEDS ORDERED: AMIODARONE HCL IVPB ONE (18:00)
[2018-07-12] MEDS: OXYBUTYNIN CHL XL 5 MG TABCR PO SCH (20:53)
[2018-07-13] VITALS (99 sets, daily range): BP systolic 75–131; BP diastolic 39–89
--- NOTE | 2018-07-13 06:45 | EKG ---
[place] [facility] [place] NAME: JUAN VIEIRA : [id number] MR: [id number] V: [id number] EXAM DATE: ORDERING PHYSICIAN: ALIN CONRAD TECHNOLOGIST: HC Test Reason : TACHYCARDIA Blood Pressure : / mmHG Vent. Rate : 108 BPM Atrial Rate : 113 BPM P-R Int : 000 ms QRS Dur : 068 ms QT Int : 334 ms P-R-T Axes : 000 045 055 degrees QTc Int : 447 ms Atrial fibrillation with rapid ventricular response Low voltage QRS Abnormal ECG Relatively unchanged from previous Confirmed by TREMAYNE MORGAN ([id number]) on 07/13/2018 7:37:11 PM Referred By: Confirmed By:TREMAYNE MORGAN
[2018-07-13] MEDS: INSULIN HUM LISPRO 100 UN/ML 3 ML VIAL SUBQ PRN ×2 (07:57→11:36)
--- NOTE | 2018-07-13 08:53 | Hospitalist Progress Note ---
Subjective Progress Notes Subjective The patient reports some improvement in her light headedness with standing. Still in atrial fibrillation/flutter Physical Exam Vital Signs Date Time Temp Pulse Resp B/P (MAP) Pulse Ox O2 Delivery O2 Flow Rate FiO2 07/13/18 07:15 108 44 106/76 (86) 97 Room Air 07/13/18 05:30 1.5 07/13/18 03:30 98.2 Intake and Output 07/13/18 07:00 Intake Total 3512 ml Balance 3512 ml Intake Oral 2610 ml IV Total 902 ml # Voids 9 General Appearance: Alert, Awake, No Acute Distress Cardiovascular: Other (Regularly, irregular, no m/r/g) Extremities: No Edema Result Diagram: 07/12/18 0563 07/13/18 0503 Assessment and Plan Problems: (1) Atrial fibrillation with RVR Status: Acute Assessment & Plan: She presented with 5-7 days of progressive dizziness with standing and weakness, and was found to be in atrial fib/flutter with rates in the 110-130's. Per her report, she is usually in a sinus rhythm. She was given a dose of diltiazem IR 30mg and carvedilol 3.125mg in the ER with complications of symptomatic hypotension and not much improvement in her HR. We did try a digoxin load with no significant improvement. She then was tried on a diltiazem drips without a bolus on two occasions which controlled her rate but caused low SBP when the patient would sleep. She was moved to the ICU on 07/12 and started on an amiodarone drip. Her rate is about 115-118bpm, but still in atrial fibrillation/flutter and still have some lightheadedness with standing. I spoke with Dr. Stanton (Cardiology) who recommended an electrical cardioversion, so will try to set up this afternoon. (2) Asymptomatic bacteriuria Assessment & Plan: She had many leukocytes on her initial sample, but it was contaminated. A repeat cath urine was clear, but is growing a gram positive cocci. She is asymptomatic and is without fever or an elevated WBC. She does not require antibiotics at this time. (3) Chronic systolic (congestive) heart failure Status: Resolved Assessment & Plan: She had an EF of 48%, with Moderate to severe KENYATTA, moderate AR, severe TR and severe pulmonary hypertension on 04/10/16 echo. However, 8/24/16 echo showed an EF of 53%. A nuclear stress test on 06/04/16 showed normal perfusion, and normal LV size and function (an EF of 85%). An [facility] ocardiogram this admission showed a normal ejection fraction and a severely dilated left atrium. (4) T2DM (type 2 diabetes mellitus) Status: Chronic Assessment & Plan: Continue chronic Januvia, but at renal dosing of 50mg a day (which she should likely be on as an outpatient). Chronic metformin will be held for now. The patient with be on AC and HS glucose with SSI level 2 to cover. (5) Stress incontinence Status: Chronic Assessment & Plan: She is on chronic treatment with oxybutynin. (6) Moderate to severe pulmonary hypertension Status: Chronic Assessment & Plan: Her right ventricular pressure was noted to be 45-50mmHg. (7) CKD (chronic kidney disease) stage 3, GFR 30-59 ml/min Status: Chronic Exam Sepsis Risk: No Definite Risk TREMAYNE MORGAN MD Jul 13, 2018 08:53
[2018-07-13] MEDS: APIXABAN 2.5 MG TABLET PO SCH ×2 (09:19→21:42)
[2018-07-13] MEDS: CARVEDILOL 6.25 MG TAB PO SCH ×2 (09:20→21:41)
[2018-07-13] MEDS ORDERED: fentaNYL CITR 100 MCG/2 ML AMP ONE (16:01)
[2018-07-13] MEDS ORDERED: PROPOFOL EMUL(*) 10MG/ML 20 ML 20 ML ONE (16:02)
[2018-07-13] MEDS ORDERED: MIDAZOLAM 2 MG/2 ML VIAL ONE (16:02)
[2018-07-13] MEDS ORDERED: ADENOSINE(*)IV SOLN 3MG/ML IVP ONE (16:25)
--- NOTE | 2018-07-13 16:48 | Gen Surgery H&P BLANK ---
GENERAL SURGERY H&P BLANK Electrical Cardioversion Indication: symptomatic atrial fibrillation/flutter with treatment limited by low BP Procedure: Informed consent was obtained. Anesthesiology assisted with sedation. Pre-procedure ECG appeared to be atrial flutter with a rate of 127bpm. The patient was given 6mg of adenosine, which confirmed the atrial f lutter. The pads were placed in the AP positioning. Sedation was given (see Anesthesiology note). The patient was given synchronized biphasic energy at 100J. She converted with the first attempt. The patient will remain in the ICU for recovery until more awake. TREMAYNE MORGAN MD Jul 13, 2018 16:48
--- NOTE | 2018-07-13 16:53 | EKG ---
FACILITY: [facility] PATIENT NAME: JUAN VIEIRA : [id number] MR: [id number] V: [id number] EXAM DATE: ORDERING PHYSICIAN: TREMAYNE MORGAN TECHNOLOGIST: NICOLE Test Reason : CARDIOVERSION Blood Pressure : / mmHG Vent. Rate : 127 BPM Atrial Rate : 127 BPM P-R Int : 080 ms QRS Dur : 084 ms QT Int : 298 ms P-R-T Axes : 082 -32 085 degrees QTc Int : 433 ms Atrial flutter with RVR with alternating QRS amplitude in the inferior leads Left axis deviation Pulmonary disease pattern Abnormal ECG When compared with ECG of 13-JUL-2018 05:42, Now in atrial flutter Confirmed by TREMAYNE MORGAN ([id number]) on 07/13/2018 7:48:22 PM Referred By: CATHY Confirmed By:TREMAYNE MORGAN
[2018-07-13] MEDS: OXYBUTYNIN CHL XL 5 MG TABCR PO SCH (21:42)
[2018-07-14 04:02] VITALS: BP 98/48
[2018-07-14 07:27] VITALS: BP 92/49
[2018-07-14] MEDS: CARVEDILOL 6.25 MG TAB PO SCH ×3 (08:38→20:51)
[2018-07-14] MEDS: AMIODARONE 200 MG TAB PO SCH (08:39)
[2018-07-14] MEDS: APIXABAN 2.5 MG TABLET PO SCH ×2 (08:39→20:52)
[2018-07-14 10:32] VITALS: BP 94/49
--- NOTE | 2018-07-14 10:36 | Hospitalist Progress Note ---
Subjective Progress Notes Subjective This patient was admitted for atrial fibrillation. She was cardioverted yesterday. Patient Complains of: Cardiovascular: No: Chest Pain Respiratory: No: Shortness of Breath Physical Exam Vital Signs Date Time Temp Pulse Resp B/P (MAP) Pulse Ox O2 Delivery O2 Flow Rate FiO2 07/14/18 09:22 92 07/14/18 08:39 Room Air 07/14/18 07:33 60 07/14/18 07:27 98.3 14 92/49 (63) 1.0 Intake and Output 07/14/18 07:00 Intake Total 1609 ml Balance 1609 ml Intake Oral 840 ml IV Total 769 ml # Voids 7 Cardiovascular: Regular Rate and Rhythm Respiratory: Clear to Auscultation Result Diagram: 07/12/18 0533 07/13/18 0508 Assessment and Plan Problems: (1) Atrial fibrillation with RVR Status: Acute Assessment & Plan: She presented with 5-7 days of progressive dizziness with standing and weakness, and was found to be in atrial fib/flutter with rates in the 110-130's. Per her report, she is usually in a sinus rhythm. She was given a dose of diltiazem IR 30mg and carvedilol 3.125mg in the ER with complications of symptomatic hypotension and not much improvement in her HR. We did try a digoxin load with no significant improvement. She then was tried on a diltiazem drips without a bolus on two occasions which controlled her rate but caused low SBP when the patient would sleep. She was moved to the ICU on 07/12 and started on an amiodarone drip. She underwent electrical cardioversion yesterday, and has since remained in sinus rhythm. (2) Asymptomatic bacteriuria Assessment & Plan: She had many leukocytes on her initial sample, but it was contaminated. A repeat cath urine was clear, but is growing a gram positive cocci. She is asymptomatic and is without fever or an elevated WBC. She does not require antibiotics at this time. (3) Chronic systolic (congestive) heart failure Status: Resolved Assessment & Plan: She had an EF of 48%, with Moderate to severe [place], moderate AR, severe TR and severe pulmonary hypertension on 04/10/16 echo. However, 05/15/16 echo showed an EF of 53%. A nuclear stress test on 9/13/16 showed normal perfusion, and normal LV size and function (an EF of 85%). An echocardiogram this admission showed a normal ejection fraction and a severely dilated left atrium. (4) T2DM (type 2 diabetes mellitus) Status: Chronic Assessment & Plan: Continue chronic Januvia, but at renal dosing of 50mg a day (which she should likely be on as an outpatient). Chronic metformin will be held for now. The patient with be on AC and HS glucose with SSI level 2 to cover. (5) Stress incontinence Status: Chronic Assessment & Plan: She is on chronic treatment with oxybutynin. (6) Moderate to severe pulmonary hypertension Status: Chronic Assessment & Plan: Her right ventricular pressure was noted to be 45-50mmHg. (7) CKD (chronic kidney disease) stage 3, GFR 30-59 ml/min Status: Chronic Exam Sepsis Risk: No Definite Risk JOSHUA GODOY DO Jul 14, 2018 10:36
[2018-07-14] MEDS: INSULIN HUM LISPRO 100 UN/ML 3 ML VIAL SUBQ PRN ×2 (12:09→20:54)
[2018-07-14 15:10] VITALS: BP 110/57
[2018-07-14 19:23] VITALS: BP 108/55
[2018-07-14] MEDS: OXYBUTYNIN CHL XL 5 MG TABCR PO SCH (20:51)
[2018-07-14] MEDS: ACETAMINOPHEN 325 MG TAB PO PRN (20:52)
[2018-07-15 00:38] VITALS: BP 99/53
[2018-07-15 04:28] VITALS: BP 87/47
[2018-07-15 05:44] VITALS: BP 101/51
[2018-07-15] MEDS: ACETAMINOPHEN 325 MG TAB PO PRN (05:49)
[2018-07-15 07:21] VITALS: BP 109/60
[2018-07-15] MEDS ORDERED: AMIO200T51 PO (08:28)
[2018-07-15] MEDS: APIXABAN 2.5 MG TABLET PO SCH (08:52)
[2018-07-15] MEDS: AMIODARONE 200 MG TAB PO SCH (08:52)
[2018-07-15] MEDS: CARVEDILOL 6.25 MG TAB PO SCH (08:52)
[2018-07-15 08:53] VITALS: BP 103/54
== END 2018-07-15 10:15 | disposition home or self-care (01) | DRG 310 ==
LOC: ER 01:13 → MED 08:35 → ICU 07-12 11:03 → MED 07-13 19:10
PROVIDERS: ADMIT Internal Medicine; ATTEND Internal Medicine
PROC: 5A09357 Assistance with Respiratory Ventilation, Less than 24 Consecutive Hours, Continuous Positive Airway Pressure (ICD-10-PCS; 2018-07-08)
PROC: 5A2204Z Restoration of Cardiac Rhythm, Single (ICD-10-PCS; principal; 2018-07-13)
DX: I48.0 Paroxysmal atrial fibrillation (principal); R82.71 Bacteriuria; I12.9 Hypertensive chronic kidney disease with stage 1 through stage 4 chronic kidney disease, or unspecified chronic kidney disease; E11.22 Type 2 diabetes mellitus with diabetic chronic kidney disease; N18.3 Chronic kidney disease, stage 3 (moderate); K21.9 Gastro-esophageal reflux disease without esophagitis; G47.33 Obstructive sleep apnea (adult) (pediatric); R53.1 Weakness; N39.3 Stress incontinence (female) (male); I27.20 Pulmonary hypertension, unspecified; I95.9 Hypotension, unspecified; F03.90 Unspecified dementia, unspecified severity, without behavioral disturbance, psychotic disturbance, mood disturbance, and anxiety; Z23 Encounter for immunization; Z88.7 Allergy status to serum and vaccine; Z79.84 Long term (current) use of oral hypoglycemic drugs; Z87.891 Personal history of nicotine dependence; Z99.81 Dependence on supplemental oxygen; Z85.41 Personal history of malignant neoplasm of cervix uteri; Z90.710 Acquired absence of both cervix and uterus
CPT/HCPCS: 36415; 36416; 71046; 80162; 81001; 82040; 82247; 82310; 82374; 82435; 82565; 82947; 82948; 84075; 84132; 84155; 84295; 84443; 84450; 84460; 84484; 84520; 85025; 85379; 87077; 87088; 87186; 90471; 90674; 92960; 93005; 93306; 96360; 96361; 99284; J0153; J0282; J0696; J1160; J2250; J2704; J3010; J3490; J7030; J7050; J7060

== ENCOUNTER → 2018-07-28 | Outpatient (CLI) | payer MEDICARE ==
[2018-07-08 14:03] VITALS: BMI 22.2
[~2018-07-28] MED LIST changes: +AMIO200T51 PO; +APIX2.5T PO; +CAR6.25 PO; +DENOSUMAB 60 MG/1 ML SYR SUBQ ONE; +LOPE2CAP15; +NITR-57 PO; +TRIA60LO3 TP
== END ==
LOC: SPU 08:36
PROVIDERS: ATTEND Nurse Practitioner Family
DX: M81.0 Age-related osteoporosis without current pathological fracture (principal)
CPT/HCPCS: 96372; J0897

== ENCOUNTER 2018-08-07 23:51 | Emergency (ER) | payer MEDICARE ==
[2018-07-08 14:03] VITALS: Wt 70.6 kg
[~2018-08-07 23:51] MED LIST changes: -DENOSUMAB 60 MG/1 ML SYR SUBQ ONE
--- NOTE | 2018-08-07 23:54 | ER Report ---
History and Physical Time Seen By MD: 23:54 HPI/ROS CHIEF COMPLAINT: Dizziness HISTORY OF PRESENT ILLNESS: 82-year-old female who had a recent admission with electrocardioversion of atrial fibrillation. She is denying feeling dizzy. Her family brought her in for evaluation. Patient denies headache, blurry vision, chest pain, shortness of breath. Patient denies nausea or vomiting or fever or chills. Patient states she has followed up as an outpatient with Dr. Perez cardiology to reduce the dose of her amiodarone. REVIEW OF SYSTEMS: Respiratory: No cough, no dyspnea. Cardiovascular: No chest pain, no palpitations. Gastrointestinal: No vomiting, no abdominal pain. Musculoskeletal: No back pain. Allergies: Coded Allergies: Tetanus Vaccines and Toxoid (Verified Allergy, Intermediate, SWELLING, 10/14/17) Home Meds Active Scripts Cephalexin Monohydrate (CEPHALEXIN) 500 Mg Cap, 500 MG PO TID for infection, #20 CAP TAKE 1 CAPSULE BY MOUTH EVERY SIX HOURS Prov:ESTEPHANIA KIDD DO 08/08/18 Apixaban (ELIQUIS) 2.5 Mg Tablet, 2.5 MG PO BID, #60 TAB Prov:JOSHUA GODOY DO 07/10/18 Carvedilol (CARVEDILOL) 6.25 Mg Tab, 6.25 MG PO BID, #60 TAB Prov:JOSHUA GODOY DO 07/10/18 Reported Medications Donepezil Hcl (DONEPEZIL HCL) 5 Mg Tab.rapdis, 5 MG PO QDAY, TAB 08/08/18 Amiodarone Hcl (AMIODARONE HCL) 200 Mg Tablet, 100 MG PO QDAY 08/08/18 Loperamide HCl (Imodium A-D) 2 Mg Capsule 07/08/18 Diclofenac Sodium 1% Gel (VOLTAREN 1% GEL) 100 Gm Gel..gram. 01/21/18 Cholecalciferol (Vitamin D3) (VITAMIN D3) 1,000 Unit Tablet, 5000 UNIT PO DAILY, TAB 01/21/18 Acetaminophen (TYLENOL EXTRA STRENGTH) 500 Mg Tablet, 500 MG PO PRN PRN for PAIN, TAB 01/21/18 Oxybutynin Chloride (OXYBUTYNIN CHLORIDE ER) 10 Mg Tab.er.24, 10 MG PO QDAY, TAB.SR 01/21/18 Sitagliptin Phosphate (JANUVIA) 100 Mg Tablet, 100 MG PO QDAY 01/21/18 Calcium Citrate/Vitamin D3 (CALCITRATE + VIT D CAPLET) 1 Each Tablet, 1 EACH PO DAILY 01/21/18 Cyanocobalamin (Vitamin B-12) (VITAMIN B-12) 1,000 Mcg Tablet, 1000 MCG PO DAILY 01/21/18 Discontinued Scripts Amiodarone Hcl (PACERONE) 200 Mg Tablet, 400 MG PO QDAY, #60 TAB 1 Refill Prov:SREEDHAR NEELY MD 07/15/18 Past Medical/Surgical History Atrial fibrillation, hypertension, hypercholesterolemia, jiu-[id number]-[id number] diabetes, sleep apnea, GERD, stress incontinence, history of rheumatic fever as a child but no known problems, dementia, history of cervical cancer, surgeries include hysterectomy, appendectomy, several foot surgeries, tonsillectomy, bilateral cataract surgeries Reviewed Nurses Notes: Yes Old Medical Records Reviewed: Yes Hx Smoking: No Smoking Status: Former Smoker Hx Substance Use Disorder: No Hx Alcohol Use: No Constitutional Vital Sign - Last 24 Hours 08/07/18 08/07/18 08/07/18 08/08/18 23:51 23:57 23:58 00:00 Temp 97.4 Pulse ??? 61 Resp 14 B/P (MAP) 147/63 147/63 (91) 131/66 (87) Pulse Ox 99 O2 Delivery Room Air 08/08/18 08/08/18 08/08/18 08/08/18 00:06 00:13 00:16 00:18 Pulse 52 Resp 10 B/P (MAP) 127/60 (82) 118/54 (75) 93/43 (60) 08/08/18 08/08/18 08/08/18 08/08/18 00:21 00:23 00:23 00:26 Pulse 56 56 53 43 Resp 9 B/P (MAP) 118/54 (75) 127/60 (82) 93/53 (66) Pulse Ox 97 08/08/18 08/08/18 08/08/18 08/08/18 00:30 00:36 00:45 00:51 Pulse 59 61 Resp 15 13 B/P (MAP) 121/54 (76) 118/55 (76) Pulse Ox 96 95 08/08/18 08/08/18 08/08/18 08/08/18 01:00 01:06 01:15 01:21 Pulse 60 58 Resp 14 19 B/P (MAP) 122/58 (79) ???/??? (1665) Pulse Ox 99 97 08/08/18 08/08/18 01:30 01:36 Pulse 56 Resp 17 B/P (MAP) 126/63 (84) Pulse Ox 98 Physical Exam General Appearance: The patient is alert, has no immediate need for airway protection and no current signs of toxicity. Vital signs stable, afebrile, radiation monitor shows sinus rhythm HEENT: Pupils equal and round no injection. TMs normal, oropharynx, redness or exudate, mucous. Membranes are moist Respiratory: Chest is non tender, lungs are clear to auscultation. Cardiac: regular rate and rhythm Gastrointestinal: Abdomen is soft and non tender, no masses, bowel sounds normal. Musculoskeletal: Neck: Neck is supple and non tender. Extremities have full range of motion and are non tender. Skin: No rashes or lesions. DIFFERENTIAL DIAGNOSIS: After history and physical exam differential diagnosis was considered for dizziness including but not limited to peripheral and central causes of vertigo, orthostatic causes including dehydration, cardiac dysrhythmia and blood loss. Medical Decision Making Data Points Result Diagram: 08/08/18 0006 08/08/18 0006 Laboratory Hematology Test 08/08/18 00:06 08/08/18 01:19 Red Blood Count 4.33 M/uL (4.17-5.56) Mean Corpuscular Volume 87.6 fL (80.0-96.0) Mean Corpuscular Hemoglobin 29.9 pg (26.0-33.0) Mean Corpuscular Hemoglobin Concent 34.1 g/dL (32.0-36.0) Red Cell Distribution Width 14.5 % (11.5-14.5) Mean Platelet Volume 7.5 fL (7.2-11.1) Neutrophils (%) (Auto) 80.3 % (39.4-72.5) Lymphocytes (%) (Auto) 11.5 % (17.6-49.6) Monocytes (%) (Auto) 4.7 % (4.1-12.4) Eosinophils (%) (Auto) 1.0 % (0.4-6.7) Basophils (%) (Auto) 2.5 % (0.3-1.4) Nucleated RBC Relative Count (auto) 0.0 /100WBC Neutrophils # (Auto) 4.9 K/uL (2.0-7.4) Lymphocytes # (Auto) 0.7 K/uL (1.3-3.6) Monocytes # (Auto) 0.3 K/uL (0.3-1.0) Eosinophils # (Auto) 0.1 K/uL (0.0-0.5) Basophils # (Auto) 0.2 K/uL (0.0-0.1) Nucleated RBC Absolute Count (auto) 0.00 K/uL Sodium Level 136 mmol/L (137-145) Potassium Level 5.0 mmol/L (3.5-5.0) Chloride Level 102 mmol/L (98-107) Carbon Dioxide Level 25 mmol/L (22-31) Blood Urea Nitrogen 15 mg/dl (7-18) Creatinine 1.50 mg/dl (0.52-1.04) Glomerular Filtration Rate Calc 33.3 Random Glucose 199 mg/dl (75-110) Calcium Level 9.9 mg/dl (8.4-10.2) Total Bilirubin 0.4 mg/dl (0.2-1.3) Aspartate Amino Transf (AST/SGOT) 14 U/L (0-35) Alanine Aminotransferase (ALT/SGPT) 20 U/L (0-56) Alkaline Phosphatase 70 U/L (0-126) Troponin I 0.014 ng/ml Total Protein 7.1 g/dl (6.3-8.2) Albumin 3.9 g/dl (3.5-5.0) Urine Color Yellow Urine Clarity Slightly-cloudy Urine pH 5.0 pH (4.8-9.5) Urine Specific [place] 1.010 Urine Protein Negative mg/dL (NEGATIVE) Urine Glucose (UA) 50 mg/dL (NEGATIVE) Urine Ketones Negative mg/dL (NEGATIVE) Urine Blood Small (NEGATIVE) Urine Nitrite Negative (NEGATIVE) Urine Bilirubin Negative (NEGATIVE) Urine Urobilinogen Negative mg/dL (0.2-1.9) Urine Leukocyte Esterase Large (NEGATIVE) Urine RBC 4 /HPF (0-2/HPF) Urine WBC 124 /HPF (0-5/HPF) Urine Squamous Epithelial Cells Many /LPF (</=FEW) Urine Transitional Epithelial Cells Many /LPF (NONE-FEW) Urine Bacteria Many /HPF (NONE-FEW) Urine Mucus None /HPF (NONE-FEW) Chemistry Test 08/08/18 00:06 08/08/18 01:19 White Blood Count 6.2 k/uL (4.5-11.0) Red Blood Count 4.33 M/uL (4.17-5.56) Hemoglobin 13.0 g/dL (12.0-16.0) Hematocrit 38.0 % (34.0-47.0) Mean Corpuscular Volume 87.6 fL (80.0-96.0) Mean Corpuscular Hemoglobin 29.9 pg (26.0-33.0) Mean Corpuscular Hemoglobin Concent 34.1 g/dL (32.0-36.0) Red Cell Distribution Width 14.5 % (11.5-14.5) Platelet Count 227 K/uL (150-450) Mean Platelet Volume 7.5 fL (7.2-11.1) Neutrophils (%) (Auto) 80.3 % (39.4-72.5) Lymphocytes (%) (Auto) 11.5 % (17.6-49.6) Monocytes (%) (Auto) 4.7 % (4.1-12.4) Eosinophils (%) (Auto) 1.0 % (0.4-6.7) Basophils (%) (Auto) 2.5 % (0.3-1.4) Nucleated RBC Relative Count (auto) 0.0 /100WBC Neutrophils # (Auto) 4.9 K/uL (2.0-7.4) Lymphocytes # (Auto) 0.7 K/uL (1.3-3.6) Monocytes # (Auto) 0.3 K/uL (0.3-1.0) Eosinophils # (Auto) 0.1 K/uL (0.0-0.5) Basophils # (Auto) 0.2 K/uL (0.0-0.1) Nucleated RBC Absolute Count (auto) 0.00 K/uL Glomerular Filtration Rate Calc 33.3 Calcium Level 9.9 mg/dl (8.4-10.2) Total Bilirubin 0.4 mg/dl (0.2-1.3) Aspartate Amino Transf (AST/SGOT) 14 U/L (0-35) Alanine Aminotransferase (ALT/SGPT) 20 U/L (0-56) Alkaline Phosphatase 70 U/L (0-126) Troponin I 0.014 ng/ml Total Protein 7.1 g/dl (6.3-8.2) Albumin 3.9 g/dl (3.5-5.0) Urine Color Yellow Urine Clarity Slightly-cloudy Urine pH 5.0 pH (4.8-9.5) Urine Specific [place] 1.010 Urine Protein Negative mg/dL (NEGATIVE) Urine Glucose (UA) 50 mg/dL (NEGATIVE) Urine Ketones Negative mg/dL (NEGATIVE) Urine Blood Small (NEGATIVE) Urine Nitrite Negative (NEGATIVE) Urine Bilirubin Negative (NEGATIVE) Urine Urobilinogen Negative mg/dL (0.2-1.9) Urine Leukocyte Esterase Large (NEGATIVE) Urine RBC 4 /HPF (0-2/HPF) Urine WBC 124 /HPF (0-5/HPF) Urine Squamous Epithelial Cells Many /LPF (</=FEW) Urine Transitional Epithelial Cells Many /LPF (NONE-FEW) Urine Bacteria Many /HPF (NONE-FEW) Urine Mucus None /HPF (NONE-FEW) Urinalysis Test 08/08/18 01:19 Urine Color Yellow Urine Clarity Slightly-cloudy Urine pH 5.0 pH (4.8-9.5) Urine Specific [place] 1.010 Urine Protein Negative mg/dL (NEGATIVE) Urine Glucose (UA) 50 mg/dL (NEGATIVE) Urine Ketones Negative mg/dL (NEGATIVE) Urine Blood Small (NEGATIVE) Urine Nitrite Negative (NEGATIVE) Urine Bilirubin Negative (NEGATIVE) Urine Urobilinogen Negative mg/dL (0.2-1.9) Urine Leukocyte Esterase Large (NEGATIVE) Urine RBC 4 /HPF (0-2/HPF) Urine WBC 124 /HPF (0-5/HPF) Urine Squamous Epithelial Cells Many /LPF (</=FEW) Urine Transitional Epithelial Cells Many /LPF (NONE-FEW) Urine Bacteria Many /HPF (NONE-FEW) Urine Mucus None /HPF (NONE-FEW) Microbiology Microbiology Date/Time Source Procedure Growth Status 08/08/18 01:19 Clean Catch Midstream Ur Urine Culture - Preliminary Gram Negative Vish Resulted EKG/Imaging EKG Interpretation 12 lead EK Rhythm: Sinus bradycardia, rate 56 bpm [place]: normal QRS: normal ST segments: normal, comparison to previous EKG dated 10/14/17, no significant morphologic change. There are more recent EKGs from 07/14/18, showing atrial flutter with RVR, rate in the 120 range. ED Course/Re-evaluation Clinical Indication for ER IV: Hydration, IV Access ED Course Patient was admitted to an examination room. H&P was done. The differential diagnosis was considered. On clinical examination. Patient's orthostatic vital signs are positive. She is treated with IV fluid hydration. Her EKG shows she still in a sinus rhythm. Patient's other diagnostic studies are unremarkable except for urinalysis that shows a urinary tract infection. She'll be placed on Keflex. A urinary cultures ordered. She is advised to follow-up with her [facility] physician early next week for culture check. She has an appointment scheduled for Friday. I believe Decision to Disposition Date: Aug 08, 2018 Decision to Disposition Time: 01:45 Depart Departure Latest Vital Signs Vital Signs Date Time Temp Pulse Resp B/P (MAP) Pulse Ox O2 Delivery O2 Flow Rate FiO2 08/08/18 01:36 56 17 98 08/08/18 01:30 126/63 (84) 08/07/18 23:57 97.4 Room Air Impression: Primary Impression: Dizzy Additional Impressions: Orthostatic hypotension Urinary tract infection Condition: Improved Disposition: HOME OR SELF-CARE Referrals: MIL CARRASCO (PCP) New Scripts Cephalexin Monohydrate (CEPHALEXIN) 500 Mg Cap 500 MG PO TID for infection, #20 CAP TAKE 1 CAPSULE BY MOUTH EVERY SIX HOURS Prov: ESTEPHANIA KIDD DO 08/08/18 Patient Instructions: Urinary Tract Infection in Women (ED) Additional Instructions: Follow-up with your primary care on Friday as planned next week Problem Qualifiers Additional Impressions: Urinary tract infection Urinary tract infection type: acute cystitis Hematuria presence: without hematuria Qualified Codes: N30.00 - Acute cystitis without hematuria ESTEPHANIA KIDD DO Aug 07, 2018 23:54
[2018-08-08] MEDS ORDERED: AMIO200T49 PO (00:12)
[2018-08-08] MEDS ORDERED: DONE5TAB36 PO (00:12)
[2018-08-08 00:19] LABS: PLATELET COUNT, AUTOMATED 227 K/uL (150-450)
[2018-08-08] MEDS ORDERED: NS(*) 0.9% 1000 ML BAG 1,000 ML IV ONE (00:25)
[2018-08-08 01:30] VITALS: BP 126/63
[2018-08-08] MEDS ORDERED: CEPH500C24 PO (01:48)
[2018-08-08] MEDS ORDERED: CEPHALEXIN MONO 500 MG CAP PO ONE (01:50)
--- NOTE | 2018-08-08 02:14 | EKG ---
FACILITY: [facility] [place] PATIENT NAME: JUAN VIEIRA : [id number] MR: [id number] V: [id number] EXAM DATE: ORDERING PHYSICIAN: ESTEPHANIA KIDD TECHNOLOGIST: LORENA Test Reason : S/P A FIB Blood Pressure : / mmHG Vent. Rate : 056 BPM Atrial Rate : 056 BPM P-R Int : 166 ms QRS Dur : 084 ms QT Int : 456 ms P-R-T Axes : 057 055 065 degrees QTc Int : 440 ms Sinus bradycardia Otherwise normal ECG When compared with ECG of 13-JUL-2018 16:21, Atrial flutter replaced by sinus bradycardia Confirmed by Manolo Hirsch ([id number]) on 08/08/2018 6:41:56 AM Referred By: Confirmed By:Manolo Lowry
== END 2018-08-08 02:07 | disposition home or self-care (01) ==
LOC: ER 23:54
DX: R42 Dizziness and giddiness (principal); I95.1 Orthostatic hypotension; N30.00 Acute cystitis without hematuria
CPT/HCPCS: 81001; 84484; 85025; 87088; 96360; 96361; 99283; A9270; J7030; 82040; 82247; 82310; 82374; 82435; 82565; 82947; 84075; 84132; 84155; 84295; 84450; 84460; 84520; 87077; 87186; A4353

== ENCOUNTER → 2018-09-23 | Outpatient (CLI) | payer MEDICARE ==
[2018-07-08 14:03] VITALS: BMI 22.2
[~2018-09-23] MED LIST changes: +AMIO200T49 PO; +CEPH500C24 PO; +DONE5TAB36 PO
== END ==
LOC: RESP 07:54
PROVIDERS: ATTEND Internal Medicine Clinical Cardiac Electrophysiology
DX: J98.4 Other disorders of lung (principal); Z51.81 Encounter for therapeutic drug level monitoring; Z79.899 Other long term (current) drug therapy
CPT/HCPCS: 94060; 94726; 94729

== ENCOUNTER 2018-12-04 00:09 | Day surgery (SDC) | payer MEDICARE ==
[2018-07-08 14:03] VITALS: Ht 177.8 cm; Wt 65.8 kg
[~2018-12-04] VITALS: Ht 177.8 cm; Wt 65.8 kg
[2018-12-04] MEDS ORDERED: PROPOFOL EMUL(*) 10MG/ML 20 ML 40 ML ONE (07:13)
[2018-12-04 08:54] VITALS: BP 97/59
[2018-12-04] MEDS ORDERED: NORMOSOL R SOLN(*) 1000 ML BAG 1,000 ML IV PRN (09:15)
[2018-12-04] MEDS ORDERED: LIDOCAINE/SOD BICARB 8.4% SYR ID ONE (09:15)
[2018-12-04 10:40] VITALS: BP 80/40
--- NOTE | 2018-12-04 10:46 | Short(Outpt) Discharge Summary ---
Discharge Summary Reason for Hosp/Final Diag: (1) Dysphagia Hospital Course & Plan: pt presented for egd, dilation. she tolerated the procedure well. path pending. pt will be discharged when criteria met. Departure Discharge to: Home Discharge Instructions Home Meds Active Scripts Apixaban (ELIQUIS) 2.5 Mg Tablet, 5 MG PO BID, #60 TAB Prov:JENNIFFER GO 10/30/18 Carvedilol (CARVEDILOL) 6.25 Mg Tab, 3.125 MG PO BID, #60 TAB Prov:JENNIFFER GO 10/30/18 Reported Medications Metformin Hcl (METFORMIN HCL) 1,000 Mg Tablet, 1 TAB PO BID, TAB 11/27/18 Donepezil Hcl (DONEPEZIL HCL) 5 Mg Tab.rapdis, 5 MG PO QDAY, TAB 08/08/18 Amiodarone Hcl (AMIODARONE HCL) 200 Mg Tablet, 100 MG PO QDAY 08/08/18 Loperamide HCl (Imodium A-D) 2 Mg Capsule 07/08/18 Diclofenac Sodium 1% Gel (VOLTAREN 1% GEL) 100 Gm Gel..gram. 01/21/18 Cholecalciferol (Vitamin D3) (VITAMIN D3) 1,000 Unit Tablet, 5000 UNIT PO DAILY, TAB 01/21/18 Acetaminophen (TYLENOL EXTRA STRENGTH) 500 Mg Tablet, 500 MG PO PRN PRN for PAIN, TAB 01/21/18 Oxybutynin Chloride (OXYBUTYNIN CHLORIDE ER) 10 Mg Tab.er.24, 10 MG PO QDAY, TAB.SR 01/21/18 Sitagliptin Phosphate (JANUVIA) 100 Mg Tablet, 100 MG PO QDAY 01/21/18 Diet: Regular Activity: As Tolerated Special Instructions: we will call you in 10 days with biopsy results. JENNIFFER GO Dec 04, 2018 10:46
[2018-12-04 11:05] VITALS: BP 87/69
[2018-12-04 11:31] VITALS: BP 126/67
[2018-12-04 11:35] VITALS: BP 110/63
[2018-12-04 11:36] VITALS: BP 101/55
== END 2018-12-04 12:10 | disposition home or self-care (01) ==
LOC: OR 00:09
PROVIDERS: ATTEND Surgery
DX: K22.2 Esophageal obstruction (principal); K44.9 Diaphragmatic hernia without obstruction or gangrene; K29.70 Gastritis, unspecified, without bleeding
CPT/HCPCS: 36416; 43239; 43249; 82948; 88305; 88313; J2704

== ENCOUNTER 2019-01-25 15:13 | Inpatient (IN) | payer MEDICARE ==
[2018-07-08 14:03] VITALS: Wt 66.1 kg
--- NOTE | 2019-01-25 15:41 | ER Report ---
History and Physical Time Seen By MD: 15:40 Hx. of Stated Complaint: Patient was just at PCP getting a bunch of testing. Now complains of dizziness and shortness of breath. ([facility] HPI/ROS CHIEF COMPLAINT: Lightheadedness HISTORY OF PRESENT ILLNESS: This an 83-year-old female that presents to the emergency department for lightheadedness. Patient states that she was having her labs drawn today and has been experiencing some lightheadedness, her family decided to bring her in for further evaluation. Patient states he's been experiencing some intermittent lightheadedness for the last couple of weeks. But much worse today. She does have a history of A. fib/A flutter, has been cardio verted in the past. She's been on Eliquis for 6 months. She denies nausea or vomiting. No chest pain or shortness of breath. She was started on amiodarone, and takes carvedilol. REVIEW OF SYSTEMS: Constitutional: No fever, no chills. Eyes: No discharge. ENT: No sore throat. Cardiovascular: As above. Respiratory: No cough, no shortness of breath. Gastrointestinal: No abdominal pain, no vomiting. Genitourinary: No hematuria. Musculoskeletal: No back pain. Skin: No rashes. Neurological: As above. ([facility] Allergies: Coded Allergies: Tetanus Vaccines and Toxoid (Verified Allergy, Intermediate, SWELLING, 01/25/19) Home Meds Active Scripts Sulfamethoxazole/Trimethoprim (SULFAMETHOXAZOLE-TMP DS TABLET) 1 Each Tablet, 0.5 TAB PO BID, #5 TAB Prov:JAYNEJOSHUA DO 01/27/19 Reported Medications Carvedilol (CARVEDILOL) 3.125 Mg Tab, 3.125 MG PO BID, TAB 01/26/19 Apixaban (ELIQUIS) 5 Mg Tablet, 5 MG PO BID 01/26/19 Metformin Hcl (METFORMIN HCL) 1,000 Mg Tablet, 1 TAB PO BID, TAB 11/27/18 Donepezil Hcl (DONEPEZIL HCL) 5 Mg Tab.rapdis, 5 MG PO QDAY, TAB 08/08/18 Amiodarone Hcl (AMIODARONE HCL) 200 Mg Tablet, 0.5 TAB PO QDAY 08/08/18 Loperamide HCl (Imodium A-D) 2 Mg Capsule 07/08/18 Diclofenac Sodium 1% Gel (VOLTAREN 1% GEL) 100 Gm Gel..gram., 2 G TOP QID PRN for PAIN 01/21/18 Cholecalciferol (Vitamin D3) (VITAMIN D3) 1,000 Unit Tablet, 5000 UNIT PO DAILY, TAB 01/21/18 Acetaminophen (TYLENOL EXTRA STRENGTH) 500 Mg Tablet, 500 MG PO PRN PRN for PAIN, TAB 01/21/18 Oxybutynin Chloride (OXYBUTYNIN CHLORIDE ER) 10 Mg Tab.er.24, 10 MG PO QDAY, TAB.SR 01/21/18 Sitagliptin Phosphate (JANUVIA) 100 Mg Tablet, 50 MG PO QDAY 01/21/18 Discontinued Scripts Apixaban (ELIQUIS) 2.5 Mg Tablet, 5 MG PO BID, #60 TAB Prov:JENNIFFER GO P 10/30/18 Carvedilol (CARVEDILOL) 6.25 Mg Tab, 3.125 MG PO BID, #60 TAB Prov:JENNIFFER GO P 10/30/18 Past Medical/Surgical History The patient has a past medical and surgical history of TIAs, dementia, rheumatic fevers a child, age mutilation, atrial flutter, on [place], sleep apnea, hypercholesterolemia, hypertension, GERD, colonoscopies, stress incontinence, urinary tract infections, arthritis, chronic back pain, wears glasses, lei-cdbggds-uxbspmgnf diabetic, depression, cervical and ovarian cancer, hysterectomy, hammertoe surgery, cataract surgery. ([facility]) Reviewed Nurses Notes: Yes ([facility]) Hx Smoking: Yes (1PPW X 10 YRS) Smoking Status: Former Smoker Hx Substance Use Disorder: No Hx Alcohol Use: Yes ([facility]) Constitutional Vital Sign - Last 24 Hours 01/25/19 01/25/19 01/25/19 01/25/19 15:20 15:28 15:30 15:58 Pulse 128 ??? 124 Resp 16 25 21 B/P (MAP) 124/85 127/100 (109) Pulse Ox 95 97 01/25/19 01/25/19 01/25/19 01/25/19 16:00 16:13 16:28 16:32 Pulse 98 ??? Resp 13 19 B/P (MAP) 130/89 (103) 124/91 (102) Pulse Ox 97 83 /6/03/10 5//01/25/19 16:43 16:58 17:00 17:05 Pulse 115 92 106 Resp 21 17 6 B/P (MAP) 108/77 (87) Pulse Ox 94 96 92 601/25/19/03/1001/25/19 17:10 17:15 17:20 17:25 Pulse 99 109 101 110 Resp 9 10 15 19 Pulse Ox 92 90 94 95 01/25/19/03/10//01/25/19 17:30 17:35 17:40 17:45 Pulse 98 90 120 109 Resp 14 14 17 10 B/P (MAP) 107/85 (92) Pulse Ox 98 95 94 96 01/25/19 01/25/19//01/25/19 17:50 17:55 18:00 18:05 Pulse 104 91 97 97 Resp 12 7 11 7 B/P (MAP) 120/83 (95) Pulse Ox 97 96 95 94 //07 02//07 02//01/25/19 18:10 18:15 18:20 18:25 Pulse 109 108 115 114 Resp 10 14 17 9 Pulse Ox 95 94 95 97 01/25/07 02//07 02//07 02/03/10 18:30 18:42 18:45 18:50 Pulse 103 121 123 Resp 14 14 16 B/P (MAP) 128/95 (106) Pulse Ox 95 95 95 /6/07 02//07 02//07 02/03/10 18:55 19:00 19:05 19:10 Pulse 121 96 101 109 Resp 7 16 8 16 B/P (MAP) 137/94 (108) Pulse Ox 94 90 95 93 /6/ 5// 5/6/01/25/19 19:15 19:20 19:25 19:25 Pulse 94 98 95 Resp 10 19 15 Pulse Ox 96 96 92 O2 Flow Rate 2.0 /03/10 5// 5/6/19 5/03/10 19:30 19:35 19:40 19:45 Pulse 94 67 60 59 Resp 14 10 14 16 B/P (MAP) 132/77 (95) 152/88 (109) 146/82 (103) 137/83 (101) Pulse Ox 98 99 98 99 5/6/ 5/6/ 5/6/ 5/6/ 19:50 19:55 20:00 20:17 Pulse 61 60 63 Resp 14 13 17 B/P (MAP) 133/72 (92) 127/71 (89) 129/81 (97) 147/80 (102) Pulse Ox 99 99 99 /6/ 5/6/ 5/6/ 5/03/10 20:20 20:25 20:30 20:35 Pulse 58 60 58 59 Resp 11 11 6 12 B/P (MAP) 156/78 (104) ???/??? (1665) Pulse Ox 100 // 5// 5// 5/03/10 20:40 20:45 20:50 20:55 Pulse 61 65 57 58 Resp 15 33 11 9 Pulse Ox 100 100 100 100 /6/ 5/6/ 5// 5/03/10 21:00 21:05 21:10 21:15 Pulse 61 62 60 58 Resp 9 17 13 13 B/P (MAP) 118/78 (91) Pulse Ox 100 100 100 100 /6/ 5/6/ 5/6/ 5/03/10 21:20 21:25 21:30 21:35 Pulse 61 61 61 60 Resp 14 15 13 16 B/P (MAP) 116/63 (80) Pulse Ox 100 100 98 100 /6/ 5/6/ 5/6/ 5/6 21:40 21:45 21:50 21:55 Pulse 56 61 56 54 Resp 14 16 14 14 Pulse Ox 100 100 100 100 5/6/ 5/6/ 5/6/ 5// 22:00 22:05 22:10 22:15 Pulse 54 56 57 53 Resp 18 9 15 16 B/P (MAP) 111/60 (77) Pulse Ox 100 100 100 100 /6/19 5/6/ 501/25/19 22:20 22:25 22:30 22:35 Pulse 55 54 61 56 Resp 21 14 16 13 B/P (MAP) 102/59 (73) Pulse Ox 100 100 85 100 01/25/19 01/25/19 01/25/19 01/25/19 22:40 22:45 22:50 22:55 Pulse 53 54 53 53 Resp 13 18 14 15 Pulse Ox 100 100 100 100 01/25/19 01/25/19 01/25/19 01/25/19 23:00 23:05 23:10 23:15 Pulse 53 57 56 56 Resp 17 8 8 15 B/P (MAP) 105/70 (82) Pulse Ox 100 100 98 98 01/25/19 01/25/19 01/25/19 01/25/19 23:20 23:25 23:30 23:35 Pulse 56 57 63 56 Resp 8 8 0 9 B/P (MAP) 99/58 (72) Pulse Ox 100 100 100 99 01/25/19 01/25/19 01/26/19 01/26/19 23:40 23:45 00:02 00:05 Pulse 55 55 60 Resp 12 10 10 B/P (MAP) 129/66 (87) Pulse Ox 100 100 92 01/26/19 01/26/19 01/26/19 01/26/19 00:10 00:15 00:25 00:30 Pulse 56 56 59 57 Resp 12 10 23 10 B/P (MAP) 113/60 (77) Pulse Ox 94 96 96 93 01/26/19 01/26/19 01/26/19 01/26/19 00:33 00:38 00:43 00:48 Pulse 58 55 54 58 Resp 17 8 9 Pulse Ox 93 96 97 01/26/19 01/26/19 01/26/19 01/26/19 00:53 00:58 01:00 01:03 Pulse 60 58 60 Resp 13 8 14 B/P (MAP) 106/73 (84) Pulse Ox 98 99 96 01/26/19 01/26/19 01/26/19 01/26/19 01:08 01:13 01:18 01:23 Pulse 60 54 67 68 Resp 12 9 13 Pulse Ox 95 96 94 01/26/19 01/26/19 01/26/19 01:28 01:30 01:33 Pulse 58 59 Resp 9 16 B/P (MAP) 97/53 (68) Pulse Ox 91 93 (ESTEPHANIA TORRES DO) Physical Exam General Appearance: The patient is alert, has no immediate need for airway protection and no signs of toxicity. Eyes: Pupils equal and round no pallor or injection. EOMs intact. ENT, Mouth: Mucous membranes are moist. Respiratory: There are no retractions, lungs are clear to auscultation. Cardiovascular: Irregular rate and rhythm, no murmurs, clicks or rubs. Gastrointestinal: Abdomen is soft and non tender, no masses, bowel sounds normal. Neurological: Alert and oriented 4. Moving all cavity. Following all commands. No focal neuro deficits. Mildly Unsteady gait, normal ambulation without walker per patient. Skin: Warm and dry, no rashes. Musculoskeletal: Neck is supple non tender. Extremities are nontender, nonswollen and have full range of motion. DIFFERENTIAL DIAGNOSIS: After history and physical exam differential diagnosis was considered for dizziness including but not limited to peripheral and central causes of vertigo, orthostatic causes including dehydration, and blood loss. ([facility]) Medical Decision Making Data Points Result Diagram: [birth year] Laboratory Hematology Test 01/25/19 16:31 01/26/19 00:00 Magnesium Level 1.5 mg/dl (1.7-2.2) Urine Color Yellow Urine Clarity Slightly-cloudy Urine pH 6.0 pH (4.8-9.5) Urine Specific [place] 1.006 Urine Protein Negative mg/dL (NEGATIVE) Urine Glucose (UA) Negative mg/dL (NEGATIVE) Urine Ketones Negative mg/dL (NEGATIVE) Urine Blood Small (NEGATIVE) Urine Nitrite Negative (NEGATIVE) Urine Bilirubin Negative (NEGATIVE) Urine Urobilinogen Negative mg/dL (0.2-1.9) Urine Leukocyte Esterase Large (NEGATIVE) Urine RBC 1 /HPF (0-2/HPF) Urine WBC 66 /HPF (0-5/HPF) Urine WBC Clumps Mod /HPF Urine Squamous Epithelial Cells Few /LPF (NONE-FEW) Urine Transitional Epithelial Cells Few /LPF (NONE-FEW) Urine Bacteria Negative /HPF (NONE-FEW) Urine Mucus None /HPF (NONE-FEW) Chemistry Test 01/25/19 16:31 01/26/19 00:00 Magnesium Level 1.5 mg/dl (1.7-2.2) Urine Color Yellow Urine Clarity Slightly-cloudy Urine pH 6.0 pH (4.8-9.5) Urine Specific [place] 1.006 Urine Protein Negative mg/dL (NEGATIVE) Urine Glucose (UA) Negative mg/dL (NEGATIVE) Urine Ketones Negative mg/dL (NEGATIVE) Urine Blood Small (NEGATIVE) Urine Nitrite Negative (NEGATIVE) Urine Bilirubin Negative (NEGATIVE) Urine Urobilinogen Negative mg/dL (0.2-1.9) Urine Leukocyte Esterase Large (NEGATIVE) Urine RBC 1 /HPF (0-2/HPF) Urine WBC 66 /HPF (0-5/HPF) Urine WBC Clumps Mod /HPF Urine Squamous Epithelial Cells Few /LPF (NONE-FEW) Urine Transitional Epithelial Cells Few /LPF (NONE-FEW) Urine Bacteria Negative /HPF (NONE-FEW) Urine Mucus None /HPF (NONE-FEW) Urinalysis Test 01/26/19 00:00 Urine Color Yellow Urine Clarity Slightly-cloudy Urine pH 6.0 pH (4.8-9.5) Urine Specific [place] 1.006 Urine Protein Negative mg/dL (NEGATIVE) Urine Glucose (UA) Negative mg/dL (NEGATIVE) Urine Ketones Negative mg/dL (NEGATIVE) Urine Blood Small (NEGATIVE) Urine Nitrite Negative (NEGATIVE) Urine Bilirubin Negative (NEGATIVE) Urine Urobilinogen Negative mg/dL (0.2-1.9) Urine Leukocyte Esterase Large (NEGATIVE) Urine RBC 1 /HPF (0-2/HPF) Urine WBC 66 /HPF (0-5/HPF) Urine WBC Clumps Mod /HPF Urine Squamous Epithelial Cells Few /LPF (NONE-FEW) Urine Transitional Epithelial Cells Few /LPF (NONE-FEW) Urine Bacteria Negative /HPF (NONE-FEW) Urine Mucus None /HPF (NONE-FEW) (ESTEPHANIA TORRES DO) Microbiology Microbiology Date/Time Source Procedure Growth Status 01/26/19 00:15 Cath Urine Urine Culture - Final Escherichia Coli Complete (ESTEPHANIA TORRES DO) EKG/Imaging EKG Interpretation 12 lead EKG: Time of EKG 1530. Rhythm: Atrial flutter, rate of 116 bpm. [place]: normal QRS: normal ST segments: No ST depression or elevation identified. When compared to the 08/08/2018 EKG this is different, she was in sinus bradycardia, this was after cardioversion 12 lead EKG: Time of EKG 1934, post cardioversion Rhythm: Normal sinus rhythm, ventricular rate 69 bpm. [place]: normal QRS: normal ST segments: No ST depression or elevation identified, or T-wave progression. Imaging PATIENT NAME: Yessy Sosa : 1935 MR: [id number] V: [id number] EXAM DATE: ORDERING PHYSICIAN: ELISABETH WILLAMS TECHNOLOGIST: Location: [facility] [place] Patient: Yessy Sosa : 1935 Visit/Account:[id number] Date of Sevice: 01/25/2019 CHEST PA LAT HISTORY: Shortness of breath. COMPARISON: July 08, 2018. FINDINGS: Cardiomediastinal contours: The heart size is normal. Lungs and pleura: There is no finding of an infiltrate, lymphadenopathy or pleural effusion. Bones/soft tissues: There are no findings of a fracture. IMPRESSION: No active disease in the chest. Report Dictated By: Nomi Perez MD at 01/25/2019 4:34 PM Report E-Signed By: Nomi Perez MD at 01/25/2019 4:35 PM WSN:[id number] ([facility]) Imaging Results: CT scan of the head without contrast was obtained. The results of the study are CT BRAIN NO CONTRAST HISTORY: Dizzy after cardioversion. COMPARISON: 05/28/2013. TECHNIQUE: Axial images were obtained from the skull base to the vertex without contrast. Sagittal and coronal reformats were performed. One of the following dose optimization techniques was utilized in the performance of this exam: Automated exposure control; adjustment of the mA and/or kV according to the patient's size; or use of an iterative reconstruction technique. Specific details can be referenced in the facility's radiology CT exam operational policy. CONTRAST: None. FINDINGS: Brain: No intracranial hemorrhage, mass, or edema. There are nonspecific periventricular, subcortical, and deep white matter low attenuation foci, mild in severity. It has progressed. There is mild calcification of the internal carotid arteries. The internal auditory canals and the inner and middle ear structures have a normal appearance. 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 Sulci, ventricles, and cisterns: Sulci are prominent, compatible with mild atrophy, normal for age. There is compensatory dilation of the ventricles. The basilar cisterns are patent. Osseous structures: Intact. There is hyperostosis frontalis interna. Paranasal sinuses and mastoids: There is mild mucosal thickening of the right greater than left maxillary sinuses. There is moderate mucosal thickening of the bilateral ethmoid sinuses. Rightward nasal septal deviation. Mastoids are clear. Orbits and soft tissues: There is mild to moderate cerumen within the right external auditory canal. There are changes of bilateral lens surgery. IMPRESSION: 1. No findings to account for patient's symptoms. 2. Nonspecific white matter changes are most likely due to chronic microvascular ischemic change, mild in severity. It has progressed. 3. 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 If it would alter clinical management, nonemergent CT angiogram brain is suggested to better characterize. The study was read by the radiologist. I viewed the images myself on the PACS system. (ESTEPHANIA TORRES DO) ED Course/Re-evaluation Clinical Indication for ER IV: Hydration, IV Access ED Course Patient was admitted to room. A history and physical were obtained. Differential diagnoses were considered. An IV was started. A 1 L normal saline bolus was given. CBC, CMP were obtained. CBC unremarkable, chemistry showing sodium 131, creatinine 1.30 which is comparable to previous studies, glucose 162, mag low at 1.5, we'll replete minute with 400 mg by mouth. The patient has been symptomatically lightheaded since in atrial fib atrial flutter, she has elected to proceed with electrocardioversion, cardioversion was successful is notable, she was given 10 mg IV etomidate. Did very well. Repeat EKG showing sinus rhythm with rate of 69 bpm. She was instructed to follow-up with her primary care provider in one to 2 days for reevaluation, consider upping her dose of magnesium and this could be contributory also following up with cardiology and discussed possible ablation. 01/25/2019 6:13:16 pm the patient is still symptomatic, lightheaded, remains in a a flutter, fib rhythm, heart rate right now 123. We discussed the possibility of cardioversion and she's been on [place] for at least 6 months perhaps longer according the patient, she also had a cardioversion while in the hospital did quite well with this. Patient is agreeable with cardioversion. She also would like CPR should her heart stop with medications, she did state that she would not want to be on a ventilator more than 2 days if she is going to be comatose. Procedure: Elective electrical cardioversion. The patient was electively electrically cardioverted for atrial flutter. 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 The patient was on continuous pulse oximetry. The cardioversion was attempted with 100 joules biphasic current. The cardioversion was successful. The patient tolerated the procedure well with no complications. The procedure was performed by myself and Dr. Hawk. 01/25/2019 8:37:32 pm patient is feeling unsteady, nauseous, I did speak with Dr. jose Call the hospitalist about keeping the patient's for observation, he said he will come evaluate the patient, and perhaps we could under Dr. the patient in the emergency department for another 1-2 hours reevaluates as the etomidate could be what is contributing to the nausea and the uneasy legs. Turned Over The care of the patient was turned over to Dr. Torres. IMTIAZ Suazo I authorize my typed signature that I authenticated this report. ([facility] ED Course Care assumed at 9 PM from mid-level continuing to monitor patient, after receiving etomidate for resolution of dizziness. 01/25/2019 11:01:36 pm I spoke with patient at length. She still feels dizzy and unsteady. Had nurse ambulate her. Her gait is still unsteady. We'll perform a head CT to rule out CVA or other causes centrally and catheter urinalysis will be performed. A peripheral IV will be established and patient will be gently hydrated. Results: CT scan of the head without contrast was obtained. The results of the study are CT BRAIN NO CONTRAST HISTORY: Dizzy after cardioversion. COMPARISON: 05/28/2013. TECHNIQUE: Axial images were obtained from the skull base to the vertex without contrast. Sagittal and coronal reformats were performed. One of the following dose optimization techniques was utilized in the performance of this exam: Automated exposure control; adjustment of the mA and/or kV according to the patient's size; or use of an iterative reconstruction technique. Specific details can be referenced in the facility's radiology CT exam operational policy. CONTRAST: None. FINDINGS: Brain: No intracranial hemorrhage, mass, or edema. There are nonspecific periventricular, subcortical, and deep white matter low attenuation foci, mild in severity. It has progressed. There is mild calcification of the internal carotid arteries. The internal auditory canals and the inner and middle ear structures have a normal appearance. 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 Sulci, ventricles, and cisterns: Sulci are prominent, compatible with mild atrophy, normal for age. There is compensatory dilation of the ventricles. The basilar cisterns are patent. Osseous structures: Intact. There is hyperostosis frontalis interna. Paranasal sinuses and mastoids: There is mild mucosal thickening of the right greater than left maxillary sinuses. There is moderate mucosal thickening of the bilateral ethmoid sinuses. Rightward nasal septal deviation. Mastoids are clear. Orbits and soft tissues: There is mild to moderate cerumen within the right external auditory canal. There are changes of bilateral lens surgery. IMPRESSION: 1. No findings to account for patient's symptoms. 2. Nonspecific white matter changes are most likely due to chronic microvascular ischemic change, mild in severity. It has progressed. 3. 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 If it would alter clinical management, nonemergent CT angiogram brain is suggested to better characterize. Findings of a right MCA bifurcation aneurysm were called to the emergency department on 01/26/2019 12:23 AM. The study was read by the radiologist. I viewed the images myself on the PACS system. Catheter Urinalysis returned positive for urinary tract infection. A urinary culture was ordered. 01/26/2019 12:01:21 am case discussed with Dr. Hernesto Rios hospitalist on- call, who will come evaluate the patient and consider admission. Decision to Disposition Date: January 26, 2019 Decision to Disposition Time: 00:49 (ESTEPHANIA TORRES DO) Depart Departure Latest Vital Signs Vital Signs Date Time Temp Pulse Resp B/P (MAP) Pulse Ox O2 Delivery O2 Flow Rate FiO2 01/26/19 01:33 59 16 93 01/26/19 01:30 97/53 (68) 01/25/19 19:25 2.0 (ESTEPHANIA TORRES DO) Impression: Primary Impression: Atrial flutter Additional Impressions: Lightheadedness Encounter for cardioversion procedure Urinary tract infection Cerebral arterial aneurysm Condition: Improved Disposition: Admitted from ER Referrals: BERTA VELAZQUEZ (PCP) 2 Days New Scripts Sulfamethoxazole/Trimethoprim (SULFAMETHOXAZOLE-TMP DS TABLET) 1 Each Tablet 0.5 TAB PO BID, #5 TAB Prov: JAYNEJOSHUA GAN 01/27/19 Patient Instructions: A-fib (Atrial Fibrillation) (ED), Atrial Flutter (ED), Cardioversion (GEN), Lightheadedness (ED) Additional Instructions: You were electively cardioverted from atrial fibrillation/flutter into a sinus rhythm. You did well during the procedure. Your laboratory studies are unremarkable other than slightly low magnesium. Please follow-up with Berta Velazquez within 1-2 days for reevaluation. Drink plenty of water. Get plenty of rest. Return to the ER for any other concerns or worsening symptoms. Problem Qualifiers Primary Impression: Atrial flutter Atrial flutter type: unspecified Qualified Codes: I48.92 - Unspecified atrial flutter Additional Impressions: Urinary tract infection Urinary tract infection type: acute cystitis Hematuria presence: without hematuria Qualified Codes: N30.00 - Acute cystitis without hematuria [facility] January 25, 2019 15:41 ESTEPHANIA TORRES DO January 25, 2019 23:49
[2019-01-25] MEDS ORDERED: NS(*) 0.9% 1000 ML BAG 1,000 ML IV ONE ×2 (16:02→19:55)
[2019-01-25 16:48] LABS: PLATELET COUNT, AUTOMATED 236 K/uL (150-450)
--- NOTE | 2019-01-25 16:53 | EKG ---
FACILITY: [facility] PATIENT NAME: JUAN VIEIRA : [id number] MR: [id number] V: [id number] EXAM DATE: ORDERING PHYSICIAN: [facility] HUGHES TECHNOLOGIST: JUAN ANTONIO Bowman Reason : SOB Blood Pressure : / mmHG Vent. Rate : 116 BPM Atrial Rate : 249 BPM P-R Int : 000 ms QRS Dur : 102 ms QT Int : 350 ms P-R-T Axes : -29 -60 035 degrees QTc Int : 486 ms Atrial flutter with variable AV block Left anterior fascicular block Now in atrial flutter and was previously in a sinus terrance rhythm Confirmed by TREMAYNE MORGAN ([id number]) on 01/25/2019 6:41:13 PM Referred By: CHERISE Confirmed By:TREMAYNE MORGAN
[2019-01-25] MEDS ORDERED: ETOMIDATE 20 MG/10 ML VIAL IVP ONE (18:15)
[2019-01-25] MEDS ORDERED: ETOMIDATE 20 MG/10 ML VIAL ONE (19:21)
[2019-01-25] MEDS ORDERED: MAGNESIUM OXIDE 400 MG TAB PO ONE (19:40)
[2019-01-25] MEDS ORDERED: ONDANSETRON 4 MG/2 ML VIAL IVP ONE (20:05)
[2019-01-25] MEDS ORDERED: ONDANSETRON 4 MG ODT TH SL ONE (20:10)
[2019-01-25] MEDS ORDERED: LOPERAMIDE HCL 2 MG CAP PO ONE (20:10)
[2019-01-25] MEDS ORDERED: ONDANSETRON 4 MG/2 ML VIAL ONE (20:11)
[2019-01-25] MEDS ORDERED: ONDANSETRON 4 MG ODT TABDP SL ONE ×2 (20:40)
[2019-01-25] MEDS ORDERED: MAGNESIUM SUL* 2 GM/50 ML IVPB 50 ML IVPB ONE (20:40)
--- NOTE | 2019-01-25 23:31 | EKG ---
F[place] [facility] [place] PATIENT NAME: JUAN VIEIRA : [id number] MR: [id number] V: [id number] EXAM DATE: ORDERING PHYSICIAN: NITA LUONG TECHNOLOGIST: PITO Bowman Reason : REPEAT EKG Blood Pressure : / mmHG Vent. Rate : 069 BPM Atrial Rate : 069 BPM P-R Int : 160 ms QRS Dur : 084 ms QT Int : 436 ms P-R-T Axes : 063 034 001 degrees QTc Int : 467 ms Normal sinus rhythm Normal ECG When compared with ECG of 25-JAN-2019 15:30, Sinus rhythm has replaced Atrial flutter Vent. rate has decreased BY 47 BPM Left anterior fascicular block is no longer present ST no longer depressed in Inferior leads Nonspecific T wave abnormality now evident in Inferior leads Nonspecific T wave abnormality now evident in Anterior leads Confirmed by TREMAYNE MORGAN ([id number]) on 01/25/2019 11:44:09 PM Referred By: Confirmed By:TREMAYNE MORGAN
--- NOTE | 2019-01-26 00:28 | RADIOLOGY IMAGING REPORT ---
FACILITY: [facility] - [place] PATIENT NAME: Yessy Sosa : 1935 MR: [id number] V: [id number] EXAM DATE: ORDERING PHYSICIAN: ESTEPHANIA KIDD TECHNOLOGIST: Location: [facility] - [place] Patient: Yessy Sosa : 1935 Visit/Account:[id number] Date of Sevice: 01/25/2019 CT BRAIN NO CONTRAST HISTORY: Dizzy after cardioversion. COMPARISON: 05/28/2013. TECHNIQUE: Axial images were obtained from the skull base to the vertex without contrast. Sagittal an d coronal reformats were performed. One of the following dose optimization techniques was utilized in the performance of this exam: Autom ated exposure control; adjustment of the mA and/or kV according to the patient's size; or use of an i terative reconstruction technique. Specific details can be referenced in the facility's radiology CT exam operational policy. CONTRAST: None. FINDINGS: Brain: No intracranial hemorrhage, mass, or edema. There are nonspecific periventricular, subcortical , and deep white matter low attenuation foci, mild in severity. It has progressed. There is mild calc ification of the internal carotid arteries. The internal auditory canals and the inner and middle ear structures have a normal appearance. 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 Sulci, ventricles, and cisterns: Sulci are prominent, compatible with mild atrophy, normal for age. T here is compensatory dilation of the ventricles. The basilar cisterns are patent. Osseous structures: Intact. There is hyperostosis frontalis interna. Paranasal sinuses and mastoids: There is mild mucosal thickening of the right greater than left maxil will sinuses. There is moderate mucosal thickening of the bilateral ethmoid sinuses. Rightward nasal septal deviation. Mastoids are clear. Orbits and soft tissues: There is mild to moderate cerumen within the right external auditory canal. There are changes of bilateral lens surgery. IMPRESSION: 1. No findings to account for patient's symptoms. 2. Nonspecific white matter changes are most likely due to chronic microvascular ischemic change, mil d in severity. It has progressed. 3. 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 If it would alter clinical management, nonemergent CT angiogram brain is suggested to better characterize. Findings of a right MCA bifurcation aneurysm were called to the emergency department on 01/26/2019 12:2 3 AM. Report Dictated By: Lisa Aburto at 01/26/2019 12:13 AM Report E-Signed By: Lisa Aburto at 01/26/2019 12:24 AM WSN:[email or web address]
[2019-01-26] MEDS ORDERED: INFLUENZA VIRUS VAC 0.5ML SYR IM ONLY ONE (00:50)
--- NOTE | 2019-01-26 01:21 | History & Physical ---
History of Present Illness History of Present Illness 82yo female with atrial fibrillation who came to the ER for weakness in the legs, tiredness and dizziness for a couple of days. Her son noted that she has had strong urine smell. She had a cough and runny nose, but those have been improving. No dysuria. She noted a fast heart rate today. She denies cp today or sob. She chronically feels cold and has a poor appetite. She normally gets intermittent diarrhea. No chills, vomiting, edema, orthopnea. She hasn't had any changes in medications for many months. In the ER, she was found to be in atrial flutter with RVR. She was sedated with etomidate and then electrically cardioverted. She went and has stayed in a sinus rhythm. However, she has been much weaker since then. History Problems: (1) CKD (chronic kidney disease) stage 3, GFR 30-59 ml/min Status: Chronic (2) Atrial flutter Status: Chronic (3) Dementia Status: Chronic (4) Stress incontinence Status: Chronic (5) GERD (gastroesophageal reflux disease) Status: Chronic (6) T2DM (type 2 diabetes mellitus) Status: Chronic Home Meds Active Scripts Apixaban (ELIQUIS) 2.5 Mg Tablet, 5 MG PO BID, #60 TAB Prov:JENNIFFER GO 10/30/18 Carvedilol (CARVEDILOL) 6.25 Mg Tab, 3.125 MG PO BID, #60 TAB Prov:JENNIFFER GO 10/30/18 Reported Medications Metformin Hcl (METFORMIN HCL) 1,000 Mg Tablet, 1 TAB PO BID, TAB 11/27/18 Donepezil Hcl (DONEPEZIL HCL) 5 Mg Tab.rapdis, 5 MG PO QDAY, TAB 08/08/18 Amiodarone Hcl (AMIODARONE HCL) 200 Mg Tablet, 100 MG PO QDAY 08/08/18 Loperamide HCl (Imodium A-D) 2 Mg Capsule 07/08/18 Diclofenac Sodium 1% Gel (VOLTAREN 1% GEL) 100 Gm Gel..gram. 01/21/18 Cholecalciferol (Vitamin D3) (VITAMIN D3) 1,000 Unit Tablet, 5000 UNIT PO DAILY, TAB 01/21/18 Acetaminophen (TYLENOL EXTRA STRENGTH) 500 Mg Tablet, 500 MG PO PRN PRN for PAIN, TAB 01/21/18 Oxybutynin Chloride (OXYBUTYNIN CHLORIDE ER) 10 Mg Tab.er.24, 10 MG PO QDAY, TAB.SR 01/21/18 Sitagliptin Phosphate (JANUVIA) 100 Mg Tablet, 100 MG PO QDAY 01/21/18 Allergies: Coded Allergies: Tetanus Vaccines and Toxoid (Verified Allergy, Intermediate, SWELLING, 01/25/19) Hx Smoking: Yes (1PPW X 10 YRS) Smoking Status: Former Smoker Caffeine Intake: Coffee Caffeine/Cups Per Day: 8-12 CUPS PER DAY Hx Alcohol Use: Yes Hx Substance Use Disorder: No Review of Systems All Systems Reviewed/Normal: Yes, Except as Noted Exam Vital Signs Vital Signs Date Time Temp Pulse Resp B/P (MAP) Pulse Ox O2 Delivery O2 Flow Rate FiO2 01/26/19 00:33 58 17 93 01/26/19 00:30 113/60 (77) 01/25/19 19:25 2.0 General Appearance: Alert, Awake, No Acute Distress (pale and tired appearing) Neuro: No Gross deficits Eyes: PERRLA ENT: Moist Mucous Membranes Cardiovascular: Regular Rate and Rhythm, No JVD Respiratory: Clear to Auscultation GI: Abd Soft and Non-Tender : No CVA Tenderness Extremities: No Edema Integumentary: No Jaundice, No Cyanosis Medical Decision Making Data Points Result Diagram: 01/25/19 1631 01/25/19 1631 Item Value Date Time Urine Leukocyte Esterase Moderate H 01/25/19 0015 Urine RBC 5 /HPF 01/25/19 0015 Urine WBC 138 /HPF 01/25/19 0015 Urine WBC Clumps Many /HPF 01/25/19 0015 Urine Squamous Epithelial Cells Many /LPF H 01/25/19 0015 Urine Transitional Epithelial Cells Moderate /LPF H 01/25/19 0015 Total Bilirubin 0.4 mg/dl 01/25/19 1631 Aspartate Amino Transf (AST/SGOT) 17 U/L 01/25/19 1631 Alanine Aminotransferase (ALT/SGPT) 18 U/L 01/25/19 1631 Alkaline Phosphatase 50 U/L 01/25/19 1631 Neutrophils (%) (Auto) 69.4 % 01/25/19 1631 Lymphocytes (%) (Auto) 24.0 % 01/25/19 1631 Monocytes (%) (Auto) 5.6 % 01/25/19 1631 Eosinophils (%) (Auto) 0.6 % 01/25/19 1631 Basophils (%) (Auto) 0.4 % 01/25/19 1631 EKG / Imaging EKG Interpretation Vent. Rate : 116 BPM Atrial Rate : 249 BPM P-R Int : 000 ms QRS Dur : 102 ms QT Int : 350 ms P-R-T Axes : -29 -60 035 degrees QTc Int : 486 ms Atrial flutter with variable AV block Left anterior fascicular block Now in atrial flutter and was previously in a sinus terrance rhythm Confirmed by TREMAYNE MORGAN ([id number]) on 01/25/2019 6:41:13 PM Vent. Rate : 069 BPM Atrial Rate : 069 BPM P-R Int : 160 ms QRS Dur : 084 ms QT Int : 436 ms P-R-T Axes : 063 034 001 degrees QTc Int : 467 ms Normal sinus rhythm Normal ECG When compared with ECG of 25-JAN-2019 15:30, Sinus rhythm has replaced Atrial flutter Vent. rate has decreased BY 47 BPM Left anterior fascicular block is no longer present ST no longer depressed in Inferior leads Nonspecific T wave abnormality now evident in Inferior leads Nonspecific T wave abnormality now evident in Anterior leads Confirmed by TREMAYNE MORGAN ([id number]) on 01/25/2019 11:44:[address] - 1. No findings to account for patient's symptoms. 2. Nonspecific white matter changes are most likely due to chronic microvascular ischemic change, mild in severity. It has progressed. 3. 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 If it would alter clinical management, nonemergent CT angiogram brain is suggested to better characterize. CXR - No active disease in the chest. Assessment and Plan Problems: (1) Weakness Status: Acute Assessment & Plan: She presented with a couple of days of weakness in the legs and tiredness. After getting Etomidate and having a cardioversion, she was much more weak and had difficulty ambulating despite staying in the ER for 2 more hours. Afebrile. No focal symptoms. CXR wnl. See below. Will ask OT/PT to see. (2) Pyuria Status: Acute Assessment & Plan: She has many wbc, but also many SCE. Will have staff check another UA in a couple of hours. She is afebrile and has a normal WBC/neutrophil percentage. (3) Atrial fibrillation with RVR Status: Acute Assessment & Plan: She was cardioverted in the ER. Continue chronic Eliquis, amiodarone and Coreg. (4) Cerebral arterial aneurysm Status: Acute Assessment & Plan: 6mm aneurysm at the right MCA that is new since 2013. She doesn't have focal symptoms. CT angiogram of the brain is suggested to better characterize, if indicated. (5) T2DM (type 2 diabetes mellitus) Status: Chronic Assessment & Plan: Hold chronic metformin. Continue chronic Januvia. SSI to cover. (6) CKD (chronic kidney disease) stage 3, GFR 30-59 ml/min Status: Chronic Copies to: MIL CARRASCO ; Venous Thromboembolism Antithrombotics Is Pt On Any Antithrombotics?: Yes Exam Sepsis Risk: No Definite Risk TREMAYNE MORGAN MD January 26, 2019 01:21
[2019-01-26 01:55] VITALS: BP 119/81
[2019-01-26 05:28] VITALS: BP 103/57
[2019-01-26 07:28] VITALS: BP 90/50
[2019-01-26] MEDS: INSULIN HUM LISPRO 100 UN/ML 3 ML VIAL SUBQ PRN (07:59)
--- NOTE | 2019-01-26 08:10 | Hospitalist Progress Note ---
Subjective Progress Notes Subjective She reports some minor improvements. Physical Exam Vital Signs Date Time Temp Pulse Resp B/P (MAP) Pulse Ox O2 Delivery O2 Flow Rate FiO2 01/26/19 07:28 98.0 68 20 90/50 (63) 96 Room Air 01/25/19 19:25 2.0 Intake and Output 01/26/19 07:00 Intake Total 1630 ml Output Total 10 ml Balance 1620 ml Intake Oral 30 ml IV Total 1600 ml Output Urine Total 10 ml General Appearance: Alert, Awake Cardiovascular: Other (Regular distant tones) Respiratory: Other (fairly clear) GI: Soft and Non-Tender Extremities: Warm, Perfused Psych: Alert & Oriented X3 Result Diagram: 01/25/19 1631 01/25/19 1631 Assessment and Plan Problems: (1) Weakness Status: Acute Assessment & Plan: She presented with a couple of days of weakness in the legs and tiredness. After getting Etomidate and having a cardioversion, she was much more weak and had difficulty ambulating despite staying in the ER for 2 more hours. Afebrile. No focal symptoms. CXR unremarkable. Question possible UTI. Will have OT/PT see. (2) Pyuria Status: Acute Assessment & Plan: Repeat UA shows persistent pyuria. She is afebrile and has a normal WBC/neutrophil percentage, but she has had several UTIs in past. Her generalized weakness could be manifestation of UTI. Will cover with Bactrim DS 1/2 tab PO BID. (3) Atrial fibrillation with RVR Status: Acute Assessment & Plan: She was cardioverted in the ER. She is in sinus rhythm. Continue chronic Eliquis, amiodarone, and Coreg. (4) Cerebral arterial aneurysm Status: Acute Assessment & Plan: 6mm aneurysm at the right MCA that is apparently new since 2012. Doubtful this has anything to do with her current symptoms. She doesn't have any focal symptoms. May want to consider CT angiogram of the brain, but could probably be done as an outpatient if patient and primary care provider agree to do it. (5) T2DM (type 2 diabetes mellitus) Status: Chronic Assessment & Plan: Hold chronic metformin for now. Continue chronic Januvia. Monitor glucoses with SSI to cover. (6) CKD (chronic kidney disease) stage 3, GFR 30-59 ml/min Status: Chronic Assessment & Plan: Creatinine was 1.3 at time of admission. This has been somewhat variable in the past ranging 0.8-1.5. Monitor. Exam Sepsis Risk: No Definite Risk SREEDHAR NEELY MD January 26, 2019 08:10
[2019-01-26] MEDS: AMIODARONE 200 MG TAB PO SCH (08:46)
[2019-01-26] MEDS: TRIMETH/SULFA DS 160-800MG TAB PO SCH ×2 (08:47→20:43)
[2019-01-26] MEDS: APIXABAN 2.5 MG TABLET PO SCH ×2 (08:47→20:43)
[2019-01-26] MEDS: OXYBUTYNIN CHL XL 5 MG TABCR PO SCH (08:48)
[2019-01-26] MEDS: CARVEDILOL 6.25 MG TAB PO SCH ×2 (08:48→16:30)
[2019-01-26] MEDS ORDERED: CEPHALEXIN MONO 500 MG CAP PO SCH (09:00)
[2019-01-26] MEDS ORDERED: TRIMETH/SULFA DS 160-800MG TAB PO SCH (09:00)
--- NOTE | 2019-01-26 09:05 | NUR ---
Physical Therapy Impression PT/OT eval complete. Pt lives with son and daughter in law and reports all needs on one level with 6 stairs to enter home. She reports that she ambulated minimal distances at baseline with 4WW and was limited by "dizziness". She reports 6 stairs without railing to enter home, which she reports she "crawls up like a monkey" or "scoots down on my butt". Pt completed bed mobility with SBA and HOB raised. CGA for transfers with RW, pt reporting increased dizziness with ambulation x8', requiring seated rest break on BSC. Pt ambulated back to bed with close CGA, SpO2 and BP WNL when assessed sitting at EOB at end of session. Recommendation pending progress and safety with stair negotiation Physical Therapy Goals 1: Pt to complete transfers with SBA and appropriate AD 2: Pt to ambulate 15' with SBA and appropriate AD 3: Pt to asc/desc 4 stairs with CGA Patient's Goals
--- NOTE | 2019-01-26 10:59 | NUR ---
Occupational Therapy Impression Independent bed mobility in/out. CGA toileting. CGA ambulation 2x10ft with RW. C/o of dizziness requiring seated rest break on BSC. Blood pressure and O2 WNL. Encouraged consideration of HomeHealth, pt highly resistant. Will follow to address appropriate needs for safe discharge. Occupational Therapy Goals 1) Pt will be SBA UB/LB dressing. 2) Pt will be SBA grooming/hygiene. 3) Pt will be SBA toilet task. Patient's Goal
[2019-01-26] MEDS ORDERED: APIX5TAB PO (15:33)
[2019-01-26] MEDS ORDERED: CAR3.125 PO (15:33)
[2019-01-26 15:48] VITALS: BP 106/78
[2019-01-26 19:02] VITALS: BP 102/56
[2019-01-26] MEDS ORDERED: DONEPEZIL HCL 5 MG TAB PO SCH (21:00)
[2019-01-26 22:35] VITALS: BP 119/68
[2019-01-27 03:34] VITALS: BP 106/71
[2019-01-27 06:44] LABS: PLATELET COUNT, AUTOMATED 193 K/uL (150-450)
[2019-01-27 07:58] VITALS: BP 119/70
[2019-01-27] MEDS: AMIODARONE 200 MG TAB PO SCH (08:32)
[2019-01-27] MEDS: APIXABAN 2.5 MG TABLET PO SCH (08:33)
[2019-01-27] MEDS: OXYBUTYNIN CHL XL 5 MG TABCR PO SCH (08:33)
[2019-01-27] MEDS: TRIMETH/SULFA DS 160-800MG TAB PO SCH (08:33)
[2019-01-27] MEDS: CARVEDILOL 6.25 MG TAB PO SCH (08:37)
[2019-01-27] MEDS ORDERED: SULF1TAB24 PO (08:57)
--- NOTE | 2019-01-27 09:51 | Hospitalist Depart ---
Discharge Summary Reason for Hosp/Final Diag: (1) Weakness Status: Acute Hospital Course & Plan: She presented with weakness in the legs and tiredness after getting Etomidate and having a cardioversion. She was evaluated by physical therapy, and home health was recommended. She refused this and wishes to go home independently. (2) Pyuria Status: Acute Hospital Course & Plan: Her urine culture is growing a gram negative hawa. She has been placed on oral Bactrim. (3) Atrial fibrillation with RVR Status: Acute Hospital Course & Plan: She was cardioverted in the ER, and is currently in sinus rhythm. She remains on chronic treatment with amiodarone, carvedilol, and Apixaban. (4) Cerebral arterial aneurysm Status: Acute Hospital Course & Plan: She was incidentally found to have a 6mm aneurysm on the right middle cerebral artery. This may be further evaluated with a cerebral angiogram and follow up with neurosurgery if she were interested in any intervention. (5) T2DM (type 2 diabetes mellitus) Status: Chronic Hospital Course & Plan: She is on chronic treatment with metformin and Januvia. (6) CKD (chronic kidney disease) stage 3, GFR 30-59 ml/min Status: Chronic Departure Latest Vital Signs Vital Signs 01/25/19 01/27/19 19:25 07:58 Temp 97.8 Pulse 64 Resp 14 B/P (MAP) 119/70 (86) O2 Flow Rate 2.0 Weight (Pounds): 145 Weight (Ounces): 12.0 Result Diagram: 01/27/19 0636 01/27/19635 Condition: Improved Discharge: Home, Self Care Discharge Instructions Home Meds Active Scripts Sulfamethoxazole/Trimethoprim (SULFAMETHOXAZOLE-TMP DS TABLET) 1 Each Tablet, 0.5 TAB PO BID, #5 TAB Prov:JOSHUA GODOY 01/27/19 Reported Medications Carvedilol (CARVEDILOL) 3.125 Mg Tab, 3.125 MG PO BID, TAB 01/26/19 Apixaban (ELIQUIS) 5 Mg Tablet, 5 MG PO BID 01/26/19 Metformin Hcl (METFORMIN HCL) 1,000 Mg Tablet, 1 TAB PO BID, TAB 11/27/18 Donepezil Hcl (DONEPEZIL HCL) 5 Mg Tab.rapdis, 5 MG PO QDAY, TAB 08/08/18 Amiodarone Hcl (AMIODARONE HCL) 200 Mg Tablet, 0.5 TAB PO QDAY 08/08/18 Loperamide HCl (Imodium A-D) 2 Mg Capsule 07/08/18 Diclofenac Sodium 1% Gel (VOLTAREN 1% GEL) 100 Gm Gel..gram., 2 G TOP QID PRN for PAIN 01/21/18 Cholecalciferol (Vitamin D3) (VITAMIN D3) 1,000 Unit Tablet, 5000 UNIT PO DAILY, TAB 01/21/18 Acetaminophen (TYLENOL EXTRA STRENGTH) 500 Mg Tablet, 500 MG PO PRN PRN for PAIN, TAB 01/21/18 Oxybutynin Chloride (OXYBUTYNIN CHLORIDE ER) 10 Mg Tab.er.24, 10 MG PO QDAY, TAB.SR 01/21/18 Sitagliptin Phosphate (JANUVIA) 100 Mg Tablet, 50 MG PO QDAY 01/21/18 Discontinued Scripts Apixaban (ELIQUIS) 2.5 Mg Tablet, 5 MG PO BID, #60 TAB Prov:JENNIFFER GO 10/30/18 Carvedilol (CARVEDILOL) 6.25 Mg Tab, 3.125 MG PO BID, #60 TAB Prov:JENNIFFER GO 10/30/18 Diet: Diabetic Activity: As Tolerated Copies to: MIL CARRASCOP ; Venous Thromboembolism Antithrombotics Is Pt On Any Antithrombotics?: Yes JOSHUA GODOY DO January 27, 2019 09:51
--- NOTE | 2019-01-27 10:02 | Antimicrobial Stewardship ---
Antimicrobial Stewardship Empiricly appropriate: Yes (UTI - Bactrim DS) Significant PMH: Yes (TIAs, dementia, hx rheumatic fever, a flutter, sleep apnea, HL, HTN, GERD, UTIs, Back Pain, DM2, depression) Approriate Cultures done: Yes (UA and Urine Cx - >100,000 cfu GNR) Renal/Hepatic dosing: Yes Appropriate dose for site: Yes (Scr 1.4, CrCL ~32ml/min) Determine cumulative duration: 01/27/19 - day 2 Determine standard duration: 3-5 days, uncomplicated UTI Comment 83 yo F with TIAs, dementia, hx rheumatic fever, a flutter, sleep apnea, HL, HTN, GERD, UTIs, Back Pain, DM2, depression who presented with weakness, found to be in a flutter with RVR, she was electrically cardioverted, but remained weak. Son noted strong smelling urine, but no dysuria. T max afebrile WBC 5.2 - 4.7 Scr 1.4 CrCL ~32ml/min UA large leuk esterase, WBC 66, few sq epis Urine Cx growing >100,000cfu GNR, ID and sens pending On Bactrim DS 1/2 tab BID, plan to continue until ID and sens returns. Will follow cultures and patient improvement. Plan to treat with short course of antibiotics 3-5 days. Freda Owens, PharmD, BCOP FREDA OWENS January 27, 2019 10:01
[2019-01-27] MEDS: INSULIN HUM LISPRO 100 UN/ML 3 ML VIAL SUBQ PRN (11:16)
--- NOTE | 2019-01-27 12:46 | NUR ---
Physical Therapy Impression Pt seen prior to DC. Pt voices no concerns about discharge. Physical Therapy Goals 1: Pt to complete transfers with SBA and appropriate AD 2: Pt to ambulate 15' with SBA and appropriate AD 3: Pt to asc/desc 4 stairs with CGA Patient's Goals
== END 2019-01-27 14:00 | disposition home or self-care (01) | DRG 309 ==
LOC: ER 17:09 → MED 01-26 01:34
PROVIDERS: ADMIT Internal Medicine; ATTEND Internal Medicine
PROC: 5A2204Z Restoration of Cardiac Rhythm, Single (ICD-10-PCS; principal; 2019-01-26)
DX: I48.92 Unspecified atrial flutter (principal); N30.00 Acute cystitis without hematuria; I67.1 Cerebral aneurysm, nonruptured; E11.22 Type 2 diabetes mellitus with diabetic chronic kidney disease; I12.9 Hypertensive chronic kidney disease with stage 1 through stage 4 chronic kidney disease, or unspecified chronic kidney disease; N18.3 Chronic kidney disease, stage 3 (moderate); F03.90 Unspecified dementia, unspecified severity, without behavioral disturbance, psychotic disturbance, mood disturbance, and anxiety; G47.30 Sleep apnea, unspecified; E78.00 Pure hypercholesterolemia, unspecified; K21.9 Gastro-esophageal reflux disease without esophagitis; N39.3 Stress incontinence (female) (male); G89.29 Other chronic pain; F32.9 Major depressive disorder, single episode, unspecified; R53.1 Weakness; Z85.41 Personal history of malignant neoplasm of cervix uteri; Z88.6 Allergy status to analgesic agent; Z86.73 Personal history of transient ischemic attack (TIA), and cerebral infarction without residual deficits; Z85.43 Personal history of malignant neoplasm of ovary; Z90.710 Acquired absence of both cervix and uterus; Z87.891 Personal history of nicotine dependence; Z79.84 Long term (current) use of oral hypoglycemic drugs
CPT/HCPCS: 36415; 36416; 70450; 81001; 82040; 82247; 82310; 82374; 82435; 82565; 82947; 82948; 83735; 84075; 84132; 84155; 84295; 84450; 84460; 84520; 85025; 87077; 87088; 87186; 92960; 93005; 96361; 96374; 97161; 97166; 99285; A4353; J3490; J7030; S0119

== ENCOUNTER → 2019-01-25 | Outpatient (CLI) | payer MEDICARE ==
[2018-07-08 14:03] VITALS: BMI 22.2
[~2019-01-25] MED LIST changes: +DENOSUMAB 60 MG/1 ML SYR SUBQ ONE; -DICL100G39; +DICL100G39 TOP; +SULF1TAB24 PO
[2019-01-25 15:30] VITALS: BP 110/76
== END ==
LOC: SPU 08:33
PROVIDERS: ATTEND Nurse Practitioner Family
DX: M81.0 Age-related osteoporosis without current pathological fracture (principal)
CPT/HCPCS: 96372; J0897

== ENCOUNTER → 2019-01-25 | Outpatient (CLI) | payer MEDICARE ==
[2018-07-08 14:03] VITALS: BMI 22.2
[~2019-01-25] MED LIST changes: -DENOSUMAB 60 MG/1 ML SYR SUBQ ONE; -SULF1TAB24 PO
--- NOTE | 2019-01-25 16:40 | RADIOLOGY IMAGING REPORT ---
[place] [facility] [place] NAME: Yessy Sosa : 1935 MR: [id number] V: [id number] EXAM DATE: ORDERING PHYSICIAN: ELISABETH WILLAMS TECHNOLOGIST: [place] [facility] [place] Yessy Sosa : 1935 Visit/Account:[id number] Date of Sevice: 01/25/2019 CHEST PA LAT HISTORY: Shortness of breath. COMPARISON: July 08, 2018. FINDINGS: Cardiomediastinal contours: The heart size is normal. Lungs and pleura: There is no finding of an infiltrate, lymphadenopathy or pleural effusion. Bones/soft tissues: There are no findings of a fracture. IMPRESSION: No active disease in the chest. Report Dictated By: Nomi Perez MD at 01/25/2019 4:34 PM Report E-Signed By: Nomi Perez MD at 01/25/2019 4:35 PM WSN:[id number]
== END ==
LOC: RAD 13:53
PROVIDERS: ATTEND Internal Medicine Clinical Cardiac Electrophysiology
DX: Z79.899 Other long term (current) drug therapy (principal)
CPT/HCPCS: 36415; 71046; 82040; 82247; 82248; 84075; 84155; 84443; 84450; 84460

== ENCOUNTER → 2019-04-19 | Outpatient (CLI) | payer MEDICARE ==
[2018-07-08 14:03] VITALS: BMI 22.2
[~2019-04-19] MED LIST changes: +SULF1TAB24 PO; -TRAZ50TA34 PO; +TRAZ50TA52 PO
--- NOTE | 2019-04-19 15:13 | RADIOLOGY IMAGING REPORT ---
FACILITY: [facility] PATIENT NAME: Yessy Sosa : 1935 MR: [id number] V: [id number] EXAM DATE: ORDERING PHYSICIAN: KIRA GARG TECHNOLOGIST: Location: [facility] [place] Patient: Yessy Sosa : 1935 Visit/Account:[id number] Date of Sevice: 04/19/2019 Carotid ultrasound Indication: Amaurosis fugax Comparison:None available Findings: On the right : Peak systolic velocity of the right common carotid artery is 62 cm/s Peak systolic velocity of the right internal carotid artery is 73 cm/s There is normal antegrade flow of the right vertebral artery. The right ICA/CCA ratio is 1.2 On the left: Peak systolic velocity of the left common carotid artery is 63 cm/s Peak systolic velocity of the left internal carotid artery is 53 cm/s There is normal antegrade flow of the left vertebral artery. The left ICA/CCA ratio is 0.8 Carotid vessels are tortuous. There is moderate to advanced echogenic plaque within the bilateral ca rotid bulbs extending into the proximal ICAs and ECAs. Incidental note is made of an irregular heartbeat. IMPRESSION: 1. No hemodynamically significant stenosis of the bilateral common carotid arteries and bilateral int ernal carotid arteries as above. 2. Moderate to advanced echogenic plaque within the bilateral carotid bulbs extending into the proxi mal ICAs and ECAs. 3. Incidental note of an irregular heartbeat. Carotid % stenosis: Velocity criteria are extrapolated from diameter data as defined by the Society o f Radiologists in Ultrasound Consensus Conference, Radiology 2003; 229; 340-346 Report Dictated By: Driss Palomares MD at 04/19/2019 3:01 PM Report E-Signed By: Driss Palomares MD at 04/19/2019 3:04 PM WSN:[email or web address]
== END ==
LOC: US 04-12 01:08
PROVIDERS: ATTEND Technician/Technologist Ophthalmic
DX: I65.23 Occlusion and stenosis of bilateral carotid arteries (principal)
CPT/HCPCS: 93880

== ENCOUNTER 2019-04-29 08:50 | Emergency (ER) | payer MEDICARE ==
[2018-07-08 14:03] VITALS: Wt 64.0 kg
--- NOTE | 2019-04-29 08:55 | ER Report ---
History and Physical Time Seen By MD: 08:59 HPI/ROS CHIEF COMPLAINT: Right leg pain HISTORY OF PRESENT ILLNESS: Patient is an 83-year-old female with multiple past medical history presents with approximately 36 hours of worsening right lower extremity pain. She states the pain starts over the right greater trochanter area radiates down the side of the leg down to the foot and states the pain is excruciating and unrelieved by Tylenol. She has not had similar episodes in the past. She does describe a history of a back fracture in the past which sounds as if she had fractures to the transverse processes. Patient has not had a recent fall. She denies any fevers or chills. She denies any numbness or tingling rather just excruciating pain to the side of the leg. REVIEW OF SYSTEMS: Respiratory: No cough, no dyspnea. Cardiovascular: No chest pain, no palpitations. Gastrointestinal: No vomiting, no abdominal pain. Musculoskeletal: No back pain. Right hip and lateral thigh pain Allergies: Coded Allergies: Tetanus Vaccines and Toxoid (Verified Allergy, Intermediate, SWELLING, 04/29/19) Home Meds Active Scripts Methocarbamol (ROBAXIN-750) 750 Mg Tablet, 1500 MG PO TID for Muscle Relaxant, #21 TAB 0 Refills Prov:FREDDY LLANES MD 04/29/19 Methylprednisolone (METHYLPREDNISOLONE) 4 Mg Tab.ds.pk, 4 MG PO DIRECTED, #21 TAB Prov:FREDDY LLANES MD 04/29/19 Sulfamethoxazole/Trimethoprim (SULFAMETHOXAZOLE-TMP DS TABLET) 1 Each Tablet, 0.5 TAB PO BID, #5 TAB Prov:JOSHUA GODOY DO 01/27/19 Reported Medications Carvedilol (CARVEDILOL) 3.125 Mg Tab, 3.125 MG PO BID, TAB 01/26/19 Apixaban (ELIQUIS) 5 Mg Tablet, 5 MG PO BID 01/26/19 Metformin Hcl (METFORMIN HCL) 1,000 Mg Tablet, 1 TAB PO BID, TAB 11/27/18 Donepezil Hcl (DONEPEZIL HCL) 5 Mg Tab.rapdis, 5 MG PO QDAY, TAB 08/08/18 Amiodarone Hcl (AMIODARONE HCL) 200 Mg Tablet, 0.5 TAB PO QDAY 08/08/18 Loperamide HCl (Imodium A-D) 2 Mg Capsule 07/08/18 Diclofenac Sodium 1% Gel (VOLTAREN 1% GEL) 100 Gm Gel..gram., 2 G TOP QID PRN for PAIN 01/21/18 Cholecalciferol (Vitamin D3) (VITAMIN D3) 1,000 Unit Tablet, 5000 UNIT PO DAILY, TAB 01/21/18 Acetaminophen (TYLENOL EXTRA STRENGTH) 500 Mg Tablet, 500 MG PO PRN PRN for PAIN, TAB 01/21/18 Oxybutynin Chloride (OXYBUTYNIN CHLORIDE ER) 10 Mg Tab.er.24, 10 MG PO QDAY, TAB.SR 01/21/18 Sitagliptin Phosphate (JANUVIA) 100 Mg Tablet, 50 MG PO QDAY 01/21/18 Past Medical/Surgical History The patient has a past medical and surgical history of TIAs, dementia, rheumatic fevers a child, atrial flutter, sleep apnea, hypercholesterolemia, hypertension, GERD, colonoscopies, stress incontinence, urinary tract infections, arthritis, chronic back pain, wears glasses, jso-ruzijuj-[id number] diabetic, depression, cervical and ovarian cancer, hysterectomy, hammertoe surgery, cataract surgery. Hx Smoking: Yes (1PPW X 10 YRS) Smoking Status: Former Smoker Hx Substance Use Disorder: No Hx Alcohol Use: Yes Constitutional Vital Sign - Last 24 Hours 04/29/19 04/29/19 04/29/19 04/29/19 08:50 08:55 09:00 09:01 Temp 97.8 Pulse 105 107 Resp 12 B/P (MAP) 149/97 (114) 141/92 (108) 149/97 Pulse Ox 91 95 O2 Delivery Room Air 04/29/19 04/29/19 04/29/19 04/29/19 09:20 09:30 09:35 10:00 Pulse 106 105 B/P (MAP) 150/102 (118) 126/83 (97) Pulse Ox 93 100 04/29/19 04/29/19 04/29/19 04/29/19 10:05 10:30 10:35 10:40 Pulse 110 118 107 B/P (MAP) 149/100 (116) Pulse Ox 99 88 88 04/29/19 04/29/19 04/29/19 04/29/19 11:00 11:10 11:30 11:40 Pulse 117 112 B/P (MAP) 135/99 (111) 141/98 (112) Pulse Ox 93 92 04/29/19 04/29/19 12:00 12:10 Pulse 117 B/P (MAP) 129/96 (107) Pulse Ox 96 Physical Exam General appearance: alert no distress. CV: Reg Pulm: Neg Back: Thoracic spine has no spinal or paraspinal tenderness to palpation. Lumbar spine has no spinal tenderness no paraspinal tenderness Gastroinal: Abdomen is soft, non tender, no masses.. Skin: No lesions and no rashes. Vascular: Normal capillary refill and pulses to feet. Neurological: Motor function: Patient with 5 out of 5 motor strength to left lower extremity, normal sensation, patient with 3 out of 5 muscle strength to specifically the hip flexor on the right side, sensation is intact. DIFFERENTIAL DIAGNOSIS: After history and physical exam differential diagnosis was considered for back pain including muscular strain, herniated disc, intra- abdominal and renal causes. Medical Decision Making EKG/Imaging Imaging FACILITY: [facility] PATIENT NAME: Yessy Sosa : 1935 MR: [id number] V: [id number] EXAM DATE: ORDERING PHYSICIAN: FREDDY LLANES TECHNOLOGIST: Location: [facility] Patient: Yessy Sosa : 1935 Visit/Account:[id number] Date of Sevice: 04/29/2019 EXAMINATION: CT Lumbar spine without intravenous contrast HISTORY: Low back pain. Right hip pain. COMPARISON: None available. TECHNIQUE: Noncontrast axial CT of the lumbar spine with sagittal and coronal reformats. One of the following dose optimization techniques was utilized in the performance of this exam: Automated exposure control; adjustment of the mA and/or kV according to the patient's size; or use of an iterative reconstruction technique. Specific details can be referenced in the facility's radiology CT exam operational policy. FINDINGS: Alignment: Mild convex rightward curvature. 3 mm of retrolisthesis of L2 over L3. Vertebral bodies: Diffuse Schmorl's nodes. Degenerative endplate sclerosis at L2-L3. Posterior elements: Multilevel facet hypertrophy. Hardware: None. Disc Spaces: Multilevel degenerative disc disease. There may be focal disc extrusion in the right L2-L3 neural foramen. Soft tissues: Negative. Visualized retroperitoneal / abdominal structures: Moderate aortoiliac calcification without aneurysm. IMPRESSION: Multilevel degenerative disc disease and facet hypertrophy with mild convex rightward curvature and grade 1 retrolisthesis of L2 over L3. There may be a focal disc extrusion in the right L2-L3 neural foramen. Report Dictated By: Robel Reddy MD at 04/29/2019 10:58 AM Report E-Signed By: Robel Reddy MD at 04/29/2019 11:21 AM WSN:[id number] FACILITY: [facility] PATIENT NAME: Yessy Sosa : 1935 MR: [id number] V: [id number] EXAM DATE: ORDERING PHYSICIAN: FREDDY LLANES TECHNOLOGIST: Location: [facility] Patient: Yessy Sosa : 1935 Visit/Account:[id number] Date of Sevice: 04/29/2019 CT LOWER EXT W/O RT COMPARISON: None. HISTORY: Low back and right hip pain with no known injury. TECHNIQUE: Noncontrast axial CT of the right hip with coronal and sagittal reformats. One of the following dose optimization techniques was utilized in the performance of this exam: automated exposure control; adjustment of the mA and/or kV according to patient size; or use of iterative reconstruction technique. Specific details can be referenced in the facility's radiology CT exam operational policy. CONTRAST: None. FINDINGS: BONES : No acute fracture, evidence of osteomyelitis or concerning bone lesion in the right hip or visualized pelvis. Pubic symphysis and visualized SI joints are intact and unremarkable. Minimal degenerative cyst formation in the right lateral acetabulum consistent with mild osteoarthritis, no significant associated proliferative changes. FLUID: No appreciable effusion or drainable fluid collection. SOFT TISSUES: Marked fatty atrophy of the right gluteus minimus muscle. Moderate vascular calcifications. Mild dependent edema, right inferior gluteal fat. OTHER: Negative. IMPRESSION: 1. No acute fracture, malalignment, or effusion or evidence of osteomyelitis in the right hip. 2. Minimal right hip osteoarthritis. 3. Mild dependent soft tissue edema, right inferior gluteal fat.. Report Dictated By: Camilo Ramos at 04/29/2019 9:36 AM Report E-Signed By: Camilo Ramos at 04/29/2019 9:38 AM WSN:[facility] ED Course/Re-evaluation ED Course 04/29/2019 9:10:02 am patient did take 4 regular strength Tylenol this morning without significant relief in pain. We'll give oxycodone immediate release 5 mg for pain at this time we will obtain CT of the hip and CT of the lumbar spine. 04/29/2019 9:52:57 am patient still with pain states no different after 5 of oxycodone orally, both right 30 mg of IM Toradol and 60 mg of IM Norflex. 04/29/2019 12:11:16 pm patient sleeping upon repeat evaluation, CT scan shows some disc protrusion at the L2-L3 level and degenerative disc changes. We'll need to refer to orthopedics. Decision to Disposition Date: Apr 29, 2019 Decision to Disposition Time: 12:11 Depart Departure Latest Vital Signs Vital Signs Date Time Temp Pulse Resp B/P (MAP) Pulse Ox O2 Delivery O2 Flow Rate FiO2 04/29/19 12:10 117 96 04/29/19 12:00 129/96 (107) 04/29/19 09:01 97.8 12 Room Air Impression: Primary Impression: Lumbar back pain with radiculopathy affecting right lower extremity Condition: Improved Disposition: HOME OR SELF-CARE Referrals: MIL CARRASCO (PCP) 1 Week for recheck of your back pain ELVIS RAVI MD call to schedule a follow up appointment for evaluation and treatment of your back pain New Scripts Methocarbamol (ROBAXIN-750) 750 Mg Tablet 1500 MG PO TID for Muscle Relaxant, #21 TAB 0 Refills Prov: FREDDY LLANES MD 04/29/19 Methylprednisolone (METHYLPREDNISOLONE) 4 Mg Tab.ds.pk 4 MG PO DIRECTED, #21 TAB Prov: FREDDY LLANES MD 04/29/19 Patient Instructions: Lumbar Radiculopathy (ED) FREDDY LLANES MD Apr 29, 2019 08:55
[2019-04-29] MEDS ORDERED: oxyCODONE HCL 5 MG CAP PO ONE (09:10)
--- NOTE | 2019-04-29 09:46 | RADIOLOGY IMAGING REPORT ---
FACILITY: [facility] PATIENT NAME: Yessy Sosa : 1935 MR: [id number] V: [id number] EXAM DATE: ORDERING PHYSICIAN: FREDDY LLANES TECHNOLOGIST: Location: [facility] [place] Patient: Yessy Sosa : 1935 Visit/Account:[id number] Date of Sevice: 04/29/2019 CT LOWER EXT W/O RT COMPARISON: None. HISTORY: Low back and right hip pain with no known injury. TECHNIQUE: Noncontrast axial CT of the right hip with coronal and sagittal reformats. One of the following dose optimization techniques was utilized in the performance of this exam: auto mated exposure control; adjustment of the mA and/or kV according to patient size; or use of iterative reconstruction technique. Specific details can be referenced in the facility's radiology CT exam op erational policy. CONTRAST: None. FINDINGS: BONES : No acute fracture, evidence of osteomyelitis or concerning bone lesion in the right hip or v isualized pelvis. Pubic symphysis and visualized SI joints are intact and unremarkable. Minimal degen erative cyst formation in the right lateral acetabulum consistent with mild osteoarthritis, no signif icant associated proliferative changes. FLUID: No appreciable effusion or drainable fluid collection. SOFT TISSUES: Marked fatty atrophy of the right gluteus minimus muscle. Moderate vascular calcificat ions. Mild dependent edema, right inferior gluteal fat. OTHER: Negative. IMPRESSION: 1. No acute fracture, malalignment, or effusion or evidence of osteomyelitis in the right hip. 2. Minimal right hip osteoarthritis. 3. Mild dependent soft tissue edema, right inferior gluteal fat.. Report Dictated By: Camilo Ramos at 04/29/2019 9:36 AM Report E-Signed By: Camilo Ramos at 04/29/2019 9:38 AM WSN:[id number]
[2019-04-29] MEDS ORDERED: ORPHENADRINE 60MG/2ML INJ IM ONE (09:55)
[2019-04-29] MEDS ORDERED: KETOROLAC 30 MG/ML VIAL IM ONE (09:55)
--- NOTE | 2019-04-29 11:29 | RADIOLOGY IMAGING REPORT ---
FACILITY: [facility] PATIENT NAME: Yessy Sosa : 1935 MR: [id number] V: [id number] EXAM DATE: ORDERING PHYSICIAN: FREDDY LLANES TECHNOLOGIST: Location: [facility] [place] Patient: Yessy Sosa : 1935 Visit/Account:[id number] Date of Sevice: 04/29/2019 EXAMINATION: CT Lumbar spine without intravenous contrast HISTORY: Low back pain. Right hip pain. COMPARISON: None available. TECHNIQUE: Noncontrast axial CT of the lumbar spine with sagittal and coronal reformats. One of the following dose optimization techniques was utilized in the performance of this exam: Autom ated exposure control; adjustment of the mA and/or kV according to the patient's size; or use of an i terative reconstruction technique. Specific details can be referenced in the facility's radiology C T exam operational policy. FINDINGS: Alignment: Mild convex rightward curvature. 3 mm of retrolisthesis of L2 over L3. Vertebral bodies: Diffuse Schmorl's nodes. Degenerative endplate sclerosis at L2-L3. Posterior elements: Multilevel facet hypertrophy. Hardware: None. Disc Spaces: Multilevel degenerative disc disease. There may be focal disc extrusion in the right L2- L3 neural foramen. Soft tissues: Negative. Visualized retroperitoneal / abdominal structures: Moderate aortoiliac calcification without aneurysm . IMPRESSION: Multilevel degenerative disc disease and facet hypertrophy with mild convex rightward cur vature and grade 1 retrolisthesis of L2 over L3. There may be a focal disc extrusion in the right L2- L3 neural foramen. Report Dictated By: Robel Reddy MD at 04/29/2019 10:58 AM Report E-Signed By: Robel Reddy MD at 04/29/2019 11:21 AM WSN:[id number]
[2019-04-29 12:00] VITALS: BP 129/96
[2019-04-29] MEDS ORDERED: METH4TAB66 PO (12:19)
[2019-04-29] MEDS ORDERED: METH-543 PO (12:19)
== END 2019-04-29 12:30 | disposition home or self-care (01) ==
LOC: ER 09:04
DX: M54.16 Radiculopathy, lumbar region (principal)
CPT/HCPCS: 72131; 73700; 96372; 99284; A9270; J1885; J2360

== ENCOUNTER → 2019-05-05 | Outpatient (REF) | payer MEDICARE ==
[2018-07-08 14:03] VITALS: BMI 22.2
[~2019-05-05] MED LIST changes: +METH-543 PO; +METH4TAB66 PO
== END ==
LOC: ZZSTITCHES 11:53
PROVIDERS: ATTEND Nurse Practitioner Family
DX: N39.0 Urinary tract infection, site not specified (principal)
CPT/HCPCS: 87088